=== PATIENT | male | born 1960 | race Caucasian/White ===

== ENCOUNTER 2019-09-04 20:01 | Observation (INO) | payer OTHER, SELFPAY ==
--- NOTE | ~2019-09-04 | CT_ITS ---
EXAMINATION: CT chest abdomen pelvis wo con DATE: 09/05/2019 13:49 INDICATION: Hemoptysis. Abdominal pain. Pulsatile epigastric abdominal mass. TECHNIQUE: Computed tomography (CT) of the chest, abdomen, and pelvis was performed without intraveno us contrast. Automated exposure control and iterative reconstruction technique were employed. The dos e-length product was 406.58 mGy-cm. COMPARISON: CT chest, abdomen, and pelvis 07/19/2016 FINDINGS: CHEST CT: The lungs demonstrate mild atelectasis. A calcified right lung nodule is consistent with old granulom atous disease. No pleural effusion. The heart size is normal. There are coronary artery calcification s. There are changes of aortic valve replacement. The central pulmonary arteries are enlarged, consis tent with pulmonary arterial hypertension. There is a left chest wall pacer with leads in the right a trium and right ventricle. There is ectasia of ascending aorta measuring 4.0 cm. Aortic arch is enrique l in caliber. Distal descending thoracic aorta measures 4.5 cm. There is mild thoracic spondylosis. ABDOMEN/PELVIS CT: The liver, gallbladder, spleen, pancreas, and adrenal glands are normal. Calcifications at the hilum of the kidneys are likely vascular. There are no dilated loops of bowel. The appendix is normal. Ther e are no pathologically enlarged lymph nodes. There is no free intraperitoneal fluid. There is a fusi form suprarenal and infrarenal aortic aneurysm measuring 4.7 cm. There is mild lumbar spondylosis. IMPRESSION: 1. 4.7 cm fusiform abdominal aortic aneurysm, increased from 4.3 cm on 07/19/2016. Reviewed, dictated and finalized at location A. RS IMPRESSION: 1. 4.7 cm fusiform abdominal aortic aneurysm, increased from 4.3 cm on 07/19/20 16.
--- NOTE | ~2019-09-04 | XR_ITS ---
EXAMINATION: XR chest 2V DATE: 09/04/2019 20:29 INDICATION: COPD. Cardiac valve replacement. Mid chest pain. Epigastric pain. TECHNIQUE: PA and lateral views of the chest were obtained. COMPARISON: Chest radiograph dated 11/05/2018 FINDINGS: Unchanged mild hyperexpansion of lungs consistent with given history of COPD. No focal airspace opaci ties, pulmonary edema, pleural effusion or pneumothorax. The cardiomediastinal silhouette is normal. Median sternotomy wires, ostial markers and mediastinal surgical clips consistent with prior coronary artery bypass grafting. There are also changes of prior cardiac valve repairs, likely aortic and katalina ral. Dual lead pacemaker seen with leads projecting over the expected locations of the right atrium a nd right ventricle. IMPRESSION: 1. Mild hyperexpansion of the clear lungs consistent with given history of COPD. Reviewed, dictated and finalized at location A. USIES INSTALLER IMPRESSION: 1. Mild hyperexpansion of the clear lungs consistent with given history of COPD .
[2019-09-04 19:58] VITALS: BP 153/101; RESP 14; TEMP 36.4; O2SAT 95
--- NOTE | 2019-09-04 20:04 | ECG_ITS ---
Measurements Intervals [place] Rate: 69 P: 176 KS: 187 QRS: 72 QRSD: 110 T: 82 QT: 391 QTc: 421 Interpretive Statements ELECTRONIC ATRIAL PACEMAKER INCOMPLETE LEFT BUNDLE BRANCH BLOCK LEFT VENTRICULAR HYPERTROPHY AND ST-T CHANGE BORDERLINE T WAVE ABNORMALITY- LATERAL LEADS ABNORMAL ECG Electronically Signed On 09-04-2019 20:19:03 PIANO REFINISHER by Kush Cash D.O.
[2019-09-04 20:05] VITALS: PULSE 63
--- NOTE | 2019-09-04 20:19 | ED.CHESTPAIN ---
HPI - Chest Pain General Chief Complaint: Chest Pain Stated Complaint: chest pain Time Seen by Provider: 09/04/19 20:07 Source: patient and RN notes reviewed Mode of arrival: EMS Limitations: no limitations History of Present Illness HPI narrative: Pt is a 59 y/o male with a Hx of CABG, pacemaker, and cardiac valve replacement, who presents to the ED via EMS with c/o substernal chest pain starting around 4 AM this morning. He notes that he felt nauseas this morning when his pain first began. Pt states that he was unable to work much throughout the day today due to his pain. He notes that his pain aggravated shortly after returning home from work. Pt states that nothing in particular seemed to aggravate his pain. He notes that he was unable to eat much today due to his nausea. Pt also reports palpitations accompanying his pain, stating that his heart felt like it was racing. He notes that his pain resolved after vomiting and receiving NTG and ASA while in route to the ED. Pt states that he currently takes ASA. MD complaint: chest pain Pertinent past history: CABG and other (cardiac valve replacement; pacemaker) Onset (ago): hour(s) (16) Timing of current episode: now resolved Onset: during rest Pain location: substernal Relieving factors: nitroglycerin and medication-other (ASA) Associated symptoms: nausea, vomiting, palpitations and other (decreased intake) Treatment prior to arrival: aspirin and nitroglycerin Related Data Home Medications Medication Instructions Recorded Confirmed gabapentin 100 mg PO BID 09/04/19 09/04/19 Allergies Allergy/AdvReac Type Severity Reaction Status Date / Time Contrast Media Allergy Severe Anaphylactic Uncoded 09/04/19 20:06 Shock Review of Systems Review of Systems: All systems reviewed & are unremarkable except as noted in HPI and below Constitutional: Constitutional: Reports other (decreased intake) Cardiovascular: Cardiovascular: Reports chest pain (substernal chest pain) and Reports palpitations Gastrointestinal: Gastrointestinal: Reports nausea and Reports vomiting PMF Past Medical History Medical History (Updated 09/05/19 @ 03:00 by Johnny Yeung MD) A-fib Back pain CAD (coronary artery disease) CHF (congestive heart failure) HLD (hyperlipidemia) HTN (hypertension) Hx of cardiac pacemaker Pacemaker Surgical History Surgical History (Updated 09/05/19 @ 02:11 by Albert Duncan MD) Hx of aortic valve replacement Hx of CABG Hx of mitral valve replacement Family History Family History (Updated 09/05/19 @ 02:12 by Albert Duncan MD) Mother Acute myocardial infarction, Onset Age: 33 Sibling Cerebrovascular accident Social History Social History (Updated 09/05/19 @ 02:12 by Albert Duncan MD) Smoking status: Current every day smoker Tobacco type: cigarettes Additional smoking assessment comments: 15 cig/daily Alcohol intake: never Substance use: never Substance use type: marijuana Gender identity (if verbalized by the patient): Male Spiritual care concerns: No Agree to blood products: No Exam Const: General: healthy appearing and no acute distress Nutritional Appearance: well nourished Resp: Effort & Inspection: normal respiratory effort Auscultation: clear to auscultation bilaterally Cardio: Rate: regular rate Rhythm: regular rhythm Heart sounds: no murmurs GI: Inspection: normal to inspection GI Palp: No abdominal tenderness and Yes Soft to palpation Auscultation: normal bowel sounds Back/Spine/Pelvis: Back: other (Full ROM) Skin: General skin exam: normal color, dry skin and other (warm) Neuro: General: patient oriented x3 (alert) Speech: normal speech Extrem: General: full ROM Psych: Mental Status: mental status grossly normal Affect: normal affect Course Consultations Consultation #1: Discussed case with hospitalist, Dr. Duncan. Accepted admission. Date: 09/05/19 Time: 01:30 Vital Sig
[2019-09-04 21:04] VITALS: BP 148/84; PULSE 67; RESP 17; O2SAT 96
[2019-09-04 21:11] LABS: Basophils Percent Auto 0.3 % (0.2-1.2); Eosinophils Absolute Auto 0.1 K/mm3 (0-0.3); Eosinophils Percent Auto 0.5 % (0-4.4); Hematocrit 42.7 % (42.0-52.0); Hemoglobin 13.9 g/dL (14.0-18.0); Immature Granulocyte Absolute 0.03 K/mm3 (0.00-0.031); Immature Granulocyte Percent A 0.3 % (0-0.5); Lymphocytes Absolute Auto 2.19 K/mm3 (0.9-3.2); Lymphocytes Percent Auto 23.4 % (18.3-44.2); Mean Corpuscular HGB Conc 32.6 g/dl (32-36); Mean Corpuscular Hemoglobin 29.4 pg (26-34); Mean Corpuscular Volume 90.5 fl (80-100); Mean Platelet Volume 10.4 fl (7.4-10.4); Monocytes Absolute Auto 0.7 K/mm3 (0.1-0.6); Monocytes Percent Auto 7.7 % (2.6-8.5); Neutrophils Absolute Auto 6.3 K/mm3 (1.3-6.7); Neutrophils Percent Auto 67.8 % (45.5-73.1); Platelet Count Result 159 k/mm3 (150-375); Red Blood Count 4.72 M/mm3 (4.6-6.20); Red Cell Distribution Width 15.8 % (11.5-14.5); White Blood Count 9.4 K/mm3 (4.5-10.0)
[2019-09-04 21:21] LABS: Prothrombin Time 13.1 Seconds (11.1-14.7)
[2019-09-04 21:23] LABS: Blood Urea Nitrogen 24 mg/dL (9-20); Calcium 9.5 mg/dL (8.4-10.2); Carbon Dioxide 27 mmol/L (22-30); Chloride 102 mmol/L (98-107); Estimated Glomerular Filt Rate > 60; Glucose 106 mg/dL (75-110); Potassium 4.1 mmol/L (3.4-5.0); Sodium 138 mmol/L (137-145)
[2019-09-04 21:35] LABS: Troponin I 0.023 ng/mL (0.000-0.034)
[2019-09-04] MEDS: ONDANSETRON INJ 4 MG/2 ML VIAL IV PUSH (21:41)
[2019-09-04 22:59] VITALS: BP 137/83; PULSE 117; RESP 18; O2SAT 97
--- NOTE | 2019-09-04 23:07 | PC.NURSE ---
basting cleanerKANDACE Muñoz noticed pt's HR 170. charge went in to check on pt. pt woke up and hr returned to 118. EDP notified.
--- NOTE | 2019-09-04 23:40 | ECG_ITS ---
Measurements Intervals [place] Rate: 64 P: 43 ME: 156 QRS: 65 QRSD: 111 T: 90 QT: 428 QTc: 443 Interpretive Statements SINUS RHYTHM POSSIBLE LEFT ATRIAL ENLARGEMENT INCOMPLETE LEFT BUNDLE BRANCH BLOCK CANNOT RULE OUT SEPTAL INFARCT, AGE INDETERMINATE BORDERLINE ST-T WAVE ABNORMALITY- LATERAL LEADS ABNORMAL ECG Electronically Signed On 09-05-2019 7:05:56 CATERING SERVER by Kush Cash D.O.
[2019-09-05] VITALS (17 sets, daily range): BP systolic 103–183; BP diastolic 76–97; PULSE 60–97; RESP 15–20; TEMP 36.7–37.4; O2SAT 96–100; BMI 21.4
--- NOTE | 2019-09-05 | ECHO_ITS ---
Patient Info Name: Ricci Russell Age: 59 years : 1960 Gender: Male Ht: 70 in Wt: 149 lbs BSA: 1.82 m2 HR: 75 bpm Heart Rhythm: Sinus Rhythm Technical Quality: Good Exam Date: 09/05/2019 12:08 PM Exam Location: [facility] Pulmonary Patient Status: Inpatient Admit Date: 09/05/2019 Staff Ordering Physician: Quinton Miller MD Linen Supply Load Builder: Michael Lynn, SCOOTER, RT Attending Provider: Albert Duncan MD Exam Type: CA echo doppler color flow Study Info Indications I50.9 - Heart failure, unspecified Complete two-dimensional, color flow and Doppler transthoracic echocardiogram is performed. Summary 1. Left ventricular chamber dimension is normal. 2. Left ventricular systolic function is hyperdynamic, estimated at >70%. 3. There is severely increased left ventricular wall thickness. 4. The left ventricular diastolic function is grade I diastolic dysfunction. 5. Elevated velocities through the LVOT are noted and likely related to the hyperdynamic LV function. 6. Left atrial chamber dimension is mildly enlarged. 7. The bioprosthetic aortic valve is not well visualized. 8. There is trace regurgitation of the bioprosthetic aortic valve. 9. Peak and mean gradients of 24 and 13 mmHg respectively. 10. There is mild to moderate stenosis of the annuloplasty ring prosthetic mitral valve. 11. There is mild regurgitation of the annuloplasty ring prosthetic mitral valve. 12. Mean gradient of 7 mmHg with calculated mitral valve area of 1.3 centimeter squared. 13. Moderate pulmonary hypertension, estimated pulmonary arterial systolic pressure is 47 mmHg. 14. There is mild tricuspid valve regurgitation. 15. The abdominal aorta size is mildly dilated. Left Ventricle Left ventricular chamber dimension is normal. Left ventricular systolic function is hyperdynamic, estimated at >70%. There is severely increased left ventricular wall thickness. The left ventricular diastolic function is grade I diastolic dysfunction. Elevated velocities through the LVOT are noted and likely related to the hyperdynamic LV function. Right Ventricle Right ventricular chamber dimension is normal. Right ventricular systolic function is normal. RV pacer noted. Left Atria Left atrial chamber dimension is mildly enlarged. Right Atria Right atrial chamber dimension is normal. Atrial Septum Intact interatrial septum visualized by color flow imaging. Aortic Valve The bioprosthetic aortic valve is not well visualized. There is trace regurgitation of the bioprosthetic aortic valve. Peak and mean gradients of 24 and 13 mmHg respectively. Pulmonic Valve The pulmonic valve is normal. There is no pulmonic valve stenosis. There is trace pulmonic regurgitation. Mitral Valve There is mild to moderate stenosis of the annuloplasty ring prosthetic mitral valve. There is mild regurgitation of the annuloplasty ring prosthetic mitral valve. Mean gradient of 7 mmHg with calculated mitral valve area of 1.3 centimeter squared. Tricuspid Valve Moderate pulmonary hypertension, estimated pulmonary arterial systolic pressure is 47 mmHg. The tricuspid valve leaflets are normal. There is no significant tricuspid valve stenosis. There is mild tricuspid valve regurgitation. Pericardium/Pleural The pericardium appears normal. There is trivial pericardial effusion. Inferior Vena Cava Dilated inferior vena cava with <50% collapse upon inspiration consistent with elevated right atrial pressure, 15 mmHg. Aorta
[2019-09-05 00:04] LABS: Troponin I 0.032 ng/mL (0.000-0.034)
[2019-09-05] MEDS: METOCLOPRAMIDE HCL INJ 10 MG/2 ML VIAL IV PUSH (00:50)
[2019-09-05] MEDS: NITROGLYCERIN SL 0.4 MG TABLET SUBLINGUAL ×3 (00:50→08:36)
--- NOTE | 2019-09-05 00:52 | PC.NURSE ---
0050 0.4 mg nitro sublingual administered 161/110 cp at 5 0055 0.4 nitro sublingual administered 172/97 cp at 6 0100 0.4 nitro sl administered 157/100 cp at 4 0105 pt cp at 0 a
--- NOTE | 2019-09-05 02:05 | PM.IMHP ---
H&P: HPI History of Present Illness Chief complaint: chest pain Narrative: This is a 59 year old male with known CAD+ s/p mitral and aortic valve replacement as well as single vessel CABG 5 years ago presented to the hospital with a complaint of midsternal chest pain that has been ongoing since yesterday morning. He woke up yesterday morning around 4 am with midsternal chest pain that didn't radiate anywhere. Associated symptoms included nausea but no vomiting. He went to work and decided to just stay in his truck and rest as he continued to have chest pain. His chest pain lasted all day long and he finally decided to come to the hospital for evaluation. He believes that the reason he has been very nauseated is because he just started taking allopurinol 2 days ago. Yesterday he tried to eat some food but became very nauseated. The patients chest pain resolved in the ER with a GI cocktail. He denies any fevers, chills, cough, abdominal pain, dysuria, hematuria, vomiting, diarrhea, LE edema, or rectal bleeding. The patient hasn't had a recent stress test or cardiac angiogram. Initial and second troponin have been negative. The patient's mother is known to have at age 33 of myocardial infarction. Actually the patient no longer has any chest pain. ER provider was considering to send the patient home but his second troponin came back slightly more elevated and decided to admit him for chest pain rule out. Review of Systems Review of Systems: All systems reviewed & are unremarkable except as noted in HPI and below PMFSH Past Medical History Medical History (Updated 09/05/19 @ 02:25 by Albert Duncan MD) A-fib Back pain CAD (coronary artery disease) CHF (congestive heart failure) HLD (hyperlipidemia) HTN (hypertension) Hx of cardiac pacemaker Pacemaker Surgical History Surgical History (Updated 09/05/19 @ 02:11 by Albert Duncan MD) Hx of aortic valve replacement Hx of CABG Hx of mitral valve replacement Family History Family History (Updated 09/05/19 @ 02:12 by Albert Duncan MD) Mother Acute myocardial infarction, Onset Age: 33 Sibling Cerebrovascular accident Social History Social History (Updated 09/05/19 @ 02:12 by Albert Duncan MD) Smoking status: Current every day smoker Tobacco type: cigarettes Additional smoking assessment comments: 15 cig/daily Alcohol intake: never Substance use: never Meds Home Medications and Allergies Home Medications Medication Instructions Recorded Confirmed Type gabapentin 100 mg PO BID 09/04/19 09/04/19 History Allergies Allergy/AdvReac Type Severity Reaction Status Date / Time Contrast Media Allergy Severe Anaphylactic Uncoded 09/04/19 20:06 Shock Vital Signs Vital Signs - 24 hr 09/04/19 19:58 09/04/19 20:05 09/04/19 21:04 Temperature 36.4 C Pulse Rate 63 67 Respiratory Rate 14 17 Blood Pressure 153/101 H 148/84 H Pulse Oximetry 95 96 09/04/19 22:59 09/05/19 00:52 Temperature Pulse Rate 117 H 63 Respiratory Rate 18 16 Blood Pressure 137/83 161/91 H Pulse Oximetry 97 96 Exam Const: General: cooperative, no acute distress, alert, awake, poor hygiene and other (disheveled++ ) Nutritional Appearance: thin Orientation/consciousness: patient oriented x3 HENMT: Head: normal to inspection General nose exam: Normal external nose present Face and sinus: normal facial exam Mouth: Yes Normal oral and palatal mucosa present Eyes: Pupils: Equal, round and reactive pupils present EOM: EOMs intact bilaterally Neck: Neck: supple and no JVD Thyroid: thyroid normal Lymphatic: lymphadenopathy not noted Resp: Effort & Inspection: normal respiratory effort Auscultation: clear to auscultation bilaterally Cardio: Rate: regular rate Rhythm: regular rhythm Heart sounds: no murmurs GI: Inspection: normal to inspection Auscultation: normal bowel sounds Other: multiple diffuse subcutaneous lipomas++
--- NOTE | 2019-09-05 02:19 | ECG_ITS ---
Measurements Intervals [place] Rate: 65 P: 68 WI: 167 QRS: 71 QRSD: 114 T: 83 QT: 433 QTc: 453 Interpretive Statements SINUS RHYTHM POSSIBLE LEFT ATRIAL ENLARGEMENT INCOMPLETE LEFT BUNDLE BRANCH BLOCK CANNOT RULE OUT SEPTAL INFARCT, AGE INDETERMINATE NONSPECIFIC T-WAVE ABNORMALITY- LATERAL LEADS ABNORMAL ECG Electronically Signed On 09-05-2019 7:07:30 WATER FILTERER HELPER by Kush Cash D.O.
--- NOTE | 2019-09-05 02:31 | PC.NURSE ---
will not allow RN to type discharge plan. Pt left ed at 0220
[2019-09-05 02:47] LABS: Cholesterol 206 mg/dL (0-200); HDL Direct 39 mg/dL; Triglycerides 116 mg/dL (<150)
[2019-09-05 02:53] LABS: Alanine Aminotransferase 23 U/L (4-50); Alkaline Phosphatase 75 U/L (38-126); Aspartate Amino Transferase 35 U/L (17-59); Lipase 33 U/L (23-300)
[2019-09-05] MEDS: ONDANSETRON INJ 4 MG/2 ML VIAL IV PUSH ×2 (02:54→07:51)
[2019-09-05 02:57] LABS: LDL Cholesterol Direct 130 mg/dL
--- NOTE | 2019-09-05 02:59 | ADMGEN ---
This patient, Ricci Russell, was admitted to IMU Room 205-02. Patient/family oriented to hospital policies and general routines including ID bracelet, bed and alarms, visiting hours, pain management, procedures, bathroom and other care routines, personal items, smoking policy, room service/diet, and visiting hours. Valuables list has been completed. Information on how to activate the Rapid Response Team has been discussed. Patient/Family are encouraged to report perceived risks to care and to ask questions if they do not understand what they are told or what they should do.
[2019-09-05] MEDS: METOPROLOL TARTRATE 50 MG TAB PO (03:13)
[2019-09-05 03:17] LABS: Troponin I 0.041 ng/mL (0.000-0.034)
--- NOTE | 2019-09-05 03:33 | PC.NURSE ---
pt reports having phone on him upon arrival to ed. pt reports not having phone on him when he arrived to . per KANDACE Wilburn. pt mentioned to RN that he needed to make a few phone calls earlier in the night. This RN referred pt to [employer]. pt also never mentioned having a cell phone with him when this rn went over pt's belongings list, pt never reported having a cell phone.
[2019-09-05 07:19] LABS: Amphetamine Screen Urine Negative (Negative); Barbiturate Screen Urine Negative (Negative); Benzodiazepines Screen Urine Negative (Negative); Cannabinoid Screen Urine Positive (Negative); Cocaine Screen Urine Negative (Negative); Methadone Screen Urine Negative (Negative); Opiate Screen Urine Positive (Negative); Phencyclidine Screen Urine Negative (Negative)
--- NOTE | 2019-09-05 08:25 | ECG_ITS ---
Measurements Intervals [place] Rate: 65 P: 28 [place]: 151 QRS: 71 QRSD: 109 T: 86 QT: 429 QTc: 448 Interpretive Statements SINUS RHYTHM POSSIBLE LEFT ATRIAL ENLARGEMENT INTRAVENTRICULAR CONDUCTION DELAY DELAYED PRECORDIAL R/S TRANSITION BORDERLINE T WAVE ABNORMALITY- INFERIOR LEADS BORDERLINE ECG Electronically Signed On 09-05-2019 8:47:04 BREAD DOUGH MIXER by Kush Cash D.O.
--- NOTE | 2019-09-05 08:31 | PM.CNCAR ---
Assessment and Plan Assessment and plan (1) Abdominal pain: Qualifiers: Abdominal location: epigastric Qualified Code(s): R10.13 - Epigastric pain Code(s): R10.9 - Unspecified abdominal pain Status: Acute Assessment and Plan: 59-year-old male with history of single-vessel CAD with GLASS BULB SILVERER of mid RCA, valvular heart disease (severe AI, MR) status post CABG x1 with SVG to PDA, status post bioprosthetic AVR with placement of number 23 magna pericardial valve, status post mitral valve repair (on 06/25/2014 at [facility]), history of symptomatic tachy-casa syndrome status post placement of dual-chamber Medtronic pacemaker placement on 07/05/2014. Patient admitted with complaints of epigastric and lower substernal chest discomfort after he was initiated on NSAIDs and allopurinol for gout. In addition, patient reportedly has history of AAA. Patient is undergoing GI evaluation, and also CT scan of the abdomen to re-evaluate AAA. PPI for possible NSAID induced gastritis (2) Chest pain: Qualifiers: Chest pain type: unspecified Qualified Code(s): R07.9 - Chest pain, unspecified Code(s): R07.9 - Chest pain, unspecified Status: Acute Assessment and Plan: No acute ST segment abnormalities on the EKG. Continue to monitor. Echocardiogram will be performed to assess LV function and wall motion. (3) CAD (coronary artery disease): Qualifiers: Associated angina: with unspecified angina Coronary Disease-Associated Artery/Lesion type: bypass graft [place] vs. transplanted heart: [place] heart Qualified Code(s): I25.709 - Atherosclerosis of coronary artery bypass graft(s), unspecified, with unspecified angina pectoris Code(s): I25.10 - Atherosclerotic heart disease of [place] coronary artery without angina pectoris Status: Chronic Assessment and Plan: Aspirin, statin Use PPI with aspirin (4) VHD (valvular heart disease): Code(s): I38 - Endocarditis, valve unspecified Status: Acute Assessment and Plan: Check echocardiogram to reassess bioprosthetic aortic valve, and mitral valve. (5) AAA (abdominal aortic aneurysm) without rupture: Code(s): I71.4 - Abdominal aortic aneurysm, without rupture Status: Acute Assessment and Plan: CT scan of the abdomen is pending (6) Tobacco use: Code(s): Z72.0 - Tobacco use Status: Acute Assessment and Plan: Smoking cessation counseling was done History of Present Illness History of Present Illness Consult date/time: 09/05/19 08:31 Date of consult 11/20/2019 Reason for consult: Chest pain Requesting physician:Dr mcneill Chief complaint: Chest pain HPI: 59-year-old male with history of single-vessel CAD with GLASS BULB SILVERER of mid RCA, valvular heart disease (severe AI, MR) status post CABG x1 with SVG to PDA, status post bioprosthetic AVR with placement of number 23 magna pericardial valve, status post mitral valve repair (on 06/25/2014 at [facility]), history of symptomatic tachy-casa syndrome status post placement of dual-chamber Medtronic pacemaker placement on 07/05/2014. Patient was originally diagnosed with congestive heart failure with underlying valvar disease and CAD in 2013, and underwent CABG x1 and bio AVR and mitral valve repair on 06/25/2014. Prior to CABG and valve surgery, patient had cardiac catheterization at [facility] on 06/22/2014 which showed GLASS BULB SILVERER mid RCA; no significant obstructive disease in the left coronary system. He used to follow up with Dr. Estrada and his last office visit was on 11/11/2016. He has not had regular follow-up visit since then. He presents to [facility] with complaints of substernal and epigastric chest discomfort that started yesterday morning. He describes the chest pain as dull aching sensation, localized and associated with nausea without vomiting. Patient also has been experiencing constipation for last 5 days
[2019-09-05] MEDS: PANTOPRAZOLE SODIUM IV 40 MG VIAL IV PUSH (08:36)
[2019-09-05] MEDS: ASPIRIN 81 MG CHEWABLE TABLET PO (08:36)
--- NOTE | 2019-09-05 08:56 | P.PNIM_ITS ---
Progress Note: A&P Assessment and Plan (1) Chest pain: Qualifiers: Chest pain type: unspecified Qualified Code(s): R07.9 - Chest pain, unspecified Code(s): R07.9 - Chest pain, unspecified Status: Acute Assessment and Plan: * Suspect related to his nausea and abdominal discomfort * Follow-up troponin I pending * EKG without significant change (2) Abdominal pain: Qualifiers: Abdominal location: epigastric Qualified Code(s): R10.13 - Epigastric pain Code(s): R10.9 - Unspecified abdominal pain Status: Acute Assessment and Plan: * Suspect medication induced * Cholecystitis or pancreatitis likely * Gastritis or peptic ulcer disease possible * Expanding abdominal aortic aneurysm possible * CT abdomen pelvis (3) Nausea: Code(s): R11.0 - Nausea Status: Acute Assessment and Plan: * As above * Antiemetics for symptom control (4) HTN (hypertension): Qualifiers: Hypertension type: unspecified Qualified Code(s): I10 - Essential (primary) hypertension Code(s): I10 - Essential (primary) hypertension Status: Chronic Assessment and Plan: * Continue home regimen * Monitor pressure (5) CAD (coronary artery disease): Qualifiers: Coronary Disease-Associated Artery/Lesion type: bypass graft [place] vs. transplanted heart: [place] heart Associated angina: with unspecified angina Qualified Code(s): I25.709 - Atherosclerosis of coronary artery bypass graft(s), unspecified, with unspecified angina pectoris Code(s): I25.10 - Atherosclerotic heart disease of [place] coronary artery without angina pectoris Status: Chronic Assessment and Plan: * No evidence for acute coronary syndrome (6) Acute gout: Qualifiers: Gout site: foot Gout etiology: idiopathic Laterality: right Qualified Code(s): M10.071 - Idiopathic gout, right ankle and foot Code(s): M10.9 - Gout, unspecified Status: Acute Assessment and Plan: * IV Solu-Medrol (7) Hemoptysis: Code(s): R04.2 - Hemoptysis Status: Acute Assessment and Plan: * Smoker at high risk for lung neoplasm * Pulmonary embolus clinically unlikely * Chest x-ray without acute process * CT chest (8) Tobacco use: Code(s): Z72.0 - Tobacco use Status: Acute Assessment and Plan: * Encouraged smoking cessation (9) AAA (abdominal aortic aneurysm) without rupture: Code(s): I71.4 - Abdominal aortic aneurysm, without rupture Status: Acute Subjective Date/time seen: 09/05/19 08:56 Interval history: Severe nausea. No BM for 5 days. No full solid food for 3 days. Pain is epigastric to lower substernal. Aching. No heartburn. No emesis. Recent weight loss. About 2 weeks ago he had hemoptysis. No other abnormal bleeding. Started gout medication about week or so ago. Does not know was. Seem to get nauseated shortly after starting. Gout in the right foot including PICC toe little toe and heel. Does have a history of abdominal aortic aneurysm. Last ultrasound in [place] 2 months ago. Was told was not surgical size yet. Review of Systems Review of Systems: All systems reviewed & are unremarkable except as noted in HPI and below Exam Narrative: Exam Narrative: HEENT: EOMI, PERRL, pharyngeal mucosa pink and intact NECK: No JVD CHEST: Clear to auscultation. Normal effort. HEART: NL S1/S2, regular, no murmur ABDOME
--- NOTE | 2019-09-05 08:56 | PM.IMPN ---
Progress Note: A&P Assessment and Plan (1) Chest pain: Qualifiers: Chest pain type: unspecified Qualified Code(s): R07.9 - Chest pain, unspecified Code(s): R07.9 - Chest pain, unspecified Status: Acute Assessment and Plan: Suspect related to his nausea and abdominal discomfort Follow-up troponin I pending EKG without significant change (2) Abdominal pain: Qualifiers: Abdominal location: epigastric Qualified Code(s): R10.13 - Epigastric pain Code(s): R10.9 - Unspecified abdominal pain Status: Acute Assessment and Plan: Suspect medication induced Cholecystitis or pancreatitis likely Gastritis or peptic ulcer disease possible Expanding abdominal aortic aneurysm possible CT abdomen pelvis (3) Nausea: Code(s): R11.0 - Nausea Status: Acute Assessment and Plan: As above Antiemetics for symptom control (4) HTN (hypertension): Qualifiers: Hypertension type: unspecified Qualified Code(s): I10 - Essential (primary) hypertension Code(s): I10 - Essential (primary) hypertension Status: Chronic Assessment and Plan: Continue home regimen Monitor pressure (5) CAD (coronary artery disease): Qualifiers: Coronary Disease-Associated Artery/Lesion type: bypass graft [place] vs. transplanted heart: [place] heart Associated angina: with unspecified angina Qualified Code(s): I25.709 - Atherosclerosis of coronary artery bypass graft(s), unspecified, with unspecified angina pectoris Code(s): I25.10 - Atherosclerotic heart disease of [place] coronary artery without angina pectoris Status: Chronic Assessment and Plan: No evidence for acute coronary syndrome (6) Acute gout: Qualifiers: Gout site: foot Gout etiology: idiopathic Laterality: right Qualified Code(s): M10.071 - Idiopathic gout, right ankle and foot Code(s): M10.9 - Gout, unspecified Status: Acute Assessment and Plan: IV Solu-Medrol (7) Hemoptysis: Code(s): R04.2 - Hemoptysis Status: Acute Assessment and Plan: Smoker at high risk for lung neoplasm Pulmonary embolus clinically unlikely Chest x-ray without acute process CT chest (8) Tobacco use: Code(s): Z72.0 - Tobacco use Status: Acute Assessment and Plan: Encouraged smoking cessation (9) AAA (abdominal aortic aneurysm) without rupture: Code(s): I71.4 - Abdominal aortic aneurysm, without rupture Status: Acute Subjective Date/time seen: 09/05/19 08:56 Interval history: Severe nausea. No BM for 5 days. No full solid food for 3 days. Pain is epigastric to lower substernal. Aching. No heartburn. No emesis. Recent weight loss. About 2 weeks ago he had hemoptysis. No other abnormal bleeding. Started gout medication about week or so ago. Does not know was. Seem to get nauseated shortly after starting. Gout in the right foot including PICC toe little toe and heel. Does have a history of abdominal aortic aneurysm. Last ultrasound in [place] 2 months ago. Was told was not surgical size yet. Review of Systems Review of Systems: All systems reviewed & are unremarkable except as noted in HPI and below Exam Narrative: Exam Narrative: HEENT: EOMI, PERRL, pharyngeal mucosa pink and intact NECK: No JVD CHEST: Clear to auscultation. Normal effort. HEART: NL S1/S2, regular, no murmur ABDOMEN: BS+, soft, tender pulsatile mass in the epigastrium and periumbilical region. Right upper quadrant tenderness. No audible bruit. EXTREMITIES: No cyanosis, edema, or clubbing NEUROLOGIC: CN intact and symmetric to inspection. MUSCULOSKELETAL: Tone and strength symmetric. Tender to palpation over the right 1st and 5th toes and right heel. PSYCH: Alert. Oriented to person, place, and time. Objective Data Vital Signs Vital Signs: Vital Signs - 24 hr 09/04/19 19:58
[2019-09-05 09:53] LABS: Troponin I 0.054 ng/mL (0.000-0.034)
[2019-09-05] MEDS: PROCHLORPERAZINE EDISYLATE 10 MG/2 ML VIAL IV PUSH (10:15)
[2019-09-05] MEDS: METOPROLOL TARTRATE 50 MG TAB 100 MG PO ×2 (10:26→21:45)
[2019-09-05] MEDS: GABAPENTIN 100 MG CAPSULE PO ×2 (10:27→21:44)
[2019-09-05] MEDS: buPROPion HCL 75 MG TABLET PO (10:27)
[2019-09-05] MEDS: methylPREDNISolone SOD SUCC 125 MG VIAL 60 MG IV PUSH (10:27)
[2019-09-05] MEDS: ATORVASTATIN 40 MG TABLET PO (10:27)
[2019-09-05 15:03] LABS: Troponin I 0.055 ng/mL (0.000-0.034)
[2019-09-06] VITALS (7 sets, daily range): BP systolic 88–138; BP diastolic 60–85; PULSE 61–81; RESP 20; TEMP 36.7–36.9; O2SAT 96–99
[2019-09-06 04:47] LABS: Basophils Percent Auto 0.1 % (0.2-1.2); Eosinophils Percent Auto 0.1 % (0-4.4); Hematocrit 41.8 % (42.0-52.0); Hemoglobin 13.8 g/dL (14.0-18.0); Immature Granulocyte Percent A 0.7 % (0-0.5); Lymphocytes Absolute Auto 3.38 K/mm3 (0.9-3.2); Lymphocytes Percent Auto 24.2 % (18.3-44.2); Mean Corpuscular Hemoglobin 29.7 pg (26-34); Mean Corpuscular Volume 89.9 fl (80-100); Mean Platelet Volume 10.7 fl (7.4-10.4); Monocytes Absolute Auto 1.4 K/mm3 (0.1-0.6); Monocytes Percent Auto 9.9 % (2.6-8.5); Neutrophils Absolute Auto 9.1 K/mm3 (1.3-6.7); Platelet Count Result 171 k/mm3 (150-375); Red Blood Count 4.65 M/mm3 (4.6-6.20); Red Cell Distribution Width 15.9 % (11.5-14.5)
[2019-09-06 05:18] LABS: Blood Urea Nitrogen 41 mg/dL (9-20); Calcium 9.5 mg/dL (8.4-10.2); Carbon Dioxide 25 mmol/L (22-30); Chloride 98 mmol/L (98-107); Estimated CRCL calculation 58 ml/min; Estimated Glomerular Filt Rate 57; Glucose 100 mg/dL (75-110); Potassium 4.4 mmol/L (3.4-5.0); Sodium 137 mmol/L (137-145)
--- NOTE | 2019-09-06 08:02 | PM.DS ---
DS: Diagnosis Admitting Diagnosis Admitting Diagnosis: Chest pain, unspecified DS: Summary Hospital Course Reason for hospitalization: Chest pain Hospital Course: Patient was admitted with upper abdominal to lower chest discomfort. Found to have pulse Lamin on exam. CT of the abdomen pelvis revealed that his abdominal aortic aneurysm had expanded a bit. But there is no sign of dissection or bleeding or rupture. EKG showed nonspecific T-wave changes. Troponins were relatively flat. Chest pain resolved. Echocardiogram showed LVH with hyperdynamic left ventricle. Moderate pulmonary hypertension. 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 No wall motion abnormalities were noted. Due to personal issues the patient signed out early in the morning of September 06. He signed out against medical advice. Time Spent with Patient Time attestation: Total time spent providing and/or coordinating discharge services: 25 min Exam Narrative: Exam Narrative: He was alert oriented to person place and time. He was ambulating independently. DS: Data Data Completed and Pending Labs on day of discharge: Labs from last 24 hours 09/06/19 09/06/19 09/05/19 04:05 04:05 14:27 WBC 14.0 H RBC 4.65 Hgb 13.8 L Hct 41.8 L MCV 89.9 MCH 29.7 MCHC 33.0 RDW 15.9 H Plt Count 171 MPV 10.7 H Immature Gran % (Auto) 0.7 H Neut % (Auto) 65.0 Lymph % (Auto) 24.2 Tyler % (Auto) 9.9 H Eos % (Auto) 0.1 Baso % (Auto) 0.1 L Lymph # (Auto) 3.38 H Tyler # (Auto) 1.4 H Eos # (Auto) 0.0 Baso # (Auto) 0.0 Abs Immat Gran (auto) 0.10 H Absolute Neuts (auto) 9.1 H Absolute Nucleated RBC 0.0 Nucleated RBC % 0.0 Sodium 137 Potassium 4.4 Chloride 98 Carbon Dioxide 25 BUN 41 H D Creatinine 1.30 Estim Creat Clear Calc 58 Estimated GFR 57 L Glucose 100 Calcium 9.5 Troponin I 0.055 H* 09/05/19 09:05 WBC RBC Hgb Hct MCV MCH MCHC RDW Plt Count MPV Immature Gran % (Auto) Neut % (Auto) Lymph % (Auto) Tyler % (Auto) Eos % (Auto) Baso % (Auto) Lymph # (Auto) Tyler # (Auto) Eos # (Auto) Baso # (Auto) Abs Immat Gran (auto) Absolute Neuts (auto) Absolute Nucleated RBC Nucleated RBC % Sodium Potassium Chloride Carbon Dioxide BUN Creatinine Estim Creat Clear Calc Estimated GFR Glucose Calcium Troponin I 0.054 H* D Discharge Plan Discharge Attending physician on discharge: Jamie Mancia Consulting providers: Marty Veronica Discharging Clinician: Jamie Mancia Patient Disposition: Left Against Medical Advice Activity: other - see discharge instructions Diet: other - see discharge instructions Discharge Instructions: Because he signed out against medical advice no prescriptions or instructions on medication activity or follow-up or diet were provided. Patient Instructions: How to Stop Smoking (DC) Discharge Medications: Discontinued gabapentin 100 mg Capsule 100 mg PO BID RF: 0 allopurinol 100 mg tablet 100 mg PO DAILY RF: 0 atorvastatin 40 mg tablet 40 mg PO DAILY RF: 0 metoprolol tartrate 100 mg tablet 100 mg PO BID RF: 0 hydrochlorothiazide 50 mg tablet 50 mg PO DAILY RF: 0 aspirin 81 mg tablet,delayed release (DR/EC) 81 mg PO DAILY RF: 0 bupropion HCl 75 mg tablet 75 mg PO DAILY RF: 0 indomethacin 50 mg capsule 50 mg PO DAILY RF: 0 lisinopril 40 mg tablet 40 mg PO DAILY RF: 0 Date of admission: 09/05/19 01:29 Primary Care Provider: UNKNOWN,DOCTOR Admitting Provider: Albert Duncan Attending physician on admission: Albert Duncan Condition: Stable Quality VTE Prophylaxis VTE prophylaxis: mechanical ordered
== END 2019-09-06 07:49 | disposition left against medical advice (07) ==
LOC: ANHED 09-05 02:30 → ANHIMU 09-05 03:00
PROVIDERS: Emergency Medicine; Admitting Provider Family Medicine; Emergency Provider Emergency Medicine; Visit Provider Internal Medicine
DX: R07.89 Other chest pain (principal); R10.13 Epigastric pain; I71.4 Abdominal aortic aneurysm, without rupture; R04.2 Hemoptysis; I25.709 Atherosclerosis of coronary artery bypass graft(s), unspecified, with unspecified angina pectoris; I11.0 Hypertensive heart disease with heart failure; I50.9 Heart failure, unspecified; I08.0 Rheumatic disorders of both mitral and aortic valves; M10.071 Idiopathic gout, right ankle and foot; F17.210 Nicotine dependence, cigarettes, uncomplicated; Z95.0 Presence of cardiac pacemaker; Z95.1 Presence of aortocoronary bypass graft; Z95.2 Presence of prosthetic heart valve
CPT/HCPCS: 36415; 71046; 71250; 74176; 80048; 80061; 80307; 83690; 84075; 84450; 84460; 84484; 85025; 85610; 85730; 93005; 93306; 96374; 96375; 96376; 99285; A9270; C9113; G0378; G0379; J0780; J2405; J2765; J2930

== ENCOUNTER 2019-10-22 15:55 | IRF | payer OTHER, SELFPAY ==
[2019-10-22 16:00] VITALS: BP 153/95; PULSE 69; RESP 20; TEMP 36.2; O2SAT 97; BMI 25.7
--- NOTE | 2019-10-22 16:00 | ADMGEN ---
Arrived via personal vehicle. This patient, Ricci Russell, was admitted to [facility] Room 225-02. Patient/family oriented to hospital policies and general routines including ID bracelet, bed and alarms, visiting hours, pain management, procedures, bathroom and other care routines, personal items, smoking policy, room service/diet, and visiting hours. Valuables list has been completed. Information on how to activate the Rapid Response Team has been discussed. Patient/Family are encouraged to report perceived risks to care and to ask questions if they do not understand what they are told or what they should do.
--- NOTE | 2019-10-22 17:26 | WPDREHABHP ---
H&P: HPI History of Present Illness Chief complaint: Critical right limb ischemia Narrative: Ricci Russell is a 59 year old male HISTORY OF PRESENT ILLNESS: The patient's primary rehab impairment category is miscellaneous The etiologic diagnosis is critical right lower limb ischemia/status post aortobifemoral bypass/right femoral endarterectomy, and right femoral to above knee popliteal bypass with PT FF on October 11, 2019. I saw this patient [id number] on October 22, 2019 at 5:00 p.m. 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 He was complaining of right foot pain and cellulitis database has been going on for past month. The patient a blocked and nonhealing shallow ulcer to the right great toe. He was a 40 pack per year smoker ( quit 2 days prior to presentation close). In the past 3 years he has experienced a right leg claudication with ambulation and is currently unable to stand without pain. He has been prescribed antibiotics by both his primary care physician and radio electronics officer. Patient was admitted to vascular surgery. There were no signs of active infection. Right lower extremity angiogram revealed critical right lower limb ischemia. He underwent aortobifemoral bypass a right femoral endarterectomy and a right femoral to above knee popliteal bypass with PT FF on October 11, 2019. Postoperatively experienced acute pain uncontrolled hypertension tachycardia constipation and persistent atrial fibrillation with rapid ventricular response and a hoarse cough with congested respirations. Pain Management was consulted as an epidural AGRICULTURAL ENGINEERING TECHNOLOGIST catheter was placed. It was removed on October 16, 2019 at 1:48 p.m.. His pain is now controlled on oral pain medications. His hypertension is being controlled with oral medication but must be monitor an adjustment to medications made accordingly. The patient experience persistent atrial fibrillation with rapid ventricular response and required cardioversion on October 17, 2019 he was transferred to ICU briefly. Cardiology was consulted and the patient is oral amiodarone and was bridge from heparin drip to warfarin 5 milligram. He is on regular diet and was placed on a bowel regimen for constipation. His respiratory symptoms have cleared and he is on room air with 95% oxygen saturation. Therapy was initiated at the acute care facility and the patient transferred to us from [facility] on October 22, 2019 on FALLS OR SURGERIES: The patient has had major surgeries in the 100 days prior to admission. They had no falls in the past year. They had no falls with injury in the past year. PAST MEDICAL HISTORY: atrial fibrillation, hepatitis-C, hyperlipidemia, hypertension, 4 centimeter thoracoabdominal aneurysm, coronary arteriosclerosis, peripheral vascular disease with claudication, coronary artery disease, critical right lower extremity ischemia. PAST SURGICAL HISTORY: CABG, pacemaker, aortobifemoral bypass, right femoral endarterectomy, right femoral to above knee popliteal bypass with PT FE SOCIAL HISTORY: the patient lives in a 2 story home with the 5 steps to enter. He is able to live on the 1st floor. He will be leaving at his cousin's house at discharge. This is the home described. Former smoker quit 2 days prior to presentation. No alcohol use or drug use. FAMILY HISTORY: The patient will have to find out from the family members for any significant family history PRIOR LEVEL OF FUNCTION: Eating was INDEPENDENT Oral Care was INDEPENDENT Toileting Hygiene was INDEPENDENT Shower/Bathing was INDEPENDENT Upper Body Dressing was INDEPENDENT Lower Body Dressing was INDEPENDENT Alan
[2019-10-22] MEDS: WARFARIN (*PBKC) 2.5 MG TABLET PO (18:54)
[2019-10-22 18:55] VITALS: PULSE 69
[2019-10-22] MEDS: AMIODARONE HCL 200 MG TABLET 400 MG PO (18:55)
[2019-10-22] MEDS: ACETAMINOPHEN 325 MG TABLET 650 MG PO ×2 (19:21→23:43)
[2019-10-22] MEDS: ONDANSETRON HCL ODT 4 MG TABLET PO (19:22)
[2019-10-22 20:21] VITALS: PULSE 72
[2019-10-22] MEDS: METOPROLOL TARTRATE 50 MG TAB 100 MG PO (20:21)
[2019-10-22] MEDS: ATORVASTATIN 40 MG TABLET PO (20:21)
[2019-10-22 21:23] VITALS: BP 152/85; PULSE 62; RESP 16; TEMP 36.3; O2SAT 97
[2019-10-23] VITALS (7 sets, daily range): BP systolic 149–172; BP diastolic 80–94; PULSE 18–78; RESP 18–20; TEMP 36.2–36.9; O2SAT 99; BMI 25.7
[2019-10-23 04:45] LABS: Basophils Percent Auto 0.1 % (0.2-1.2); Eosinophils Absolute Auto 0.1 K/mm3 (0-0.3); Eosinophils Percent Auto 1.4 % (0-4.4); Hematocrit 27.2 % (42.0-52.0); Hemoglobin 8.5 g/dL (14.0-18.0); Immature Granulocyte Absolute 0.05 K/mm3 (0.00-0.031); Immature Granulocyte Percent A 0.6 % (0-0.5); Immature Platelet Fraction Pct 6.1 % (0.9-11.2); Lymphocytes Absolute Auto 1.57 K/mm3 (0.9-3.2); Lymphocytes Percent Auto 18.5 % (18.3-44.2); Mean Corpuscular HGB Conc 31.3 g/dl (32-36); Mean Corpuscular Hemoglobin 29.8 pg (26-34); Mean Corpuscular Volume 95.4 fl (80-100); Mean Platelet Volume 11.3 fl (7.4-10.4); Monocytes Absolute Auto 0.6 K/mm3 (0.1-0.6); Monocytes Percent Auto 6.7 % (2.6-8.5); Neutrophils Absolute Auto 6.2 K/mm3 (1.3-6.7); Neutrophils Percent Auto 72.7 % (45.5-73.1); Platelet Count Result 99 k/mm3 (150-375); Red Blood Count 2.85 M/mm3 (4.6-6.20); Red Cell Distribution Width 17.7 % (11.5-14.5); White Blood Count 8.5 K/mm3 (4.5-10.0)
[2019-10-23 04:56] LABS: INR 2.4; Prothrombin Time 25.6 Seconds (11.1-14.7)
[2019-10-23 04:59] LABS: Blood Urea Nitrogen 16 mg/dL (9-20); Calcium 7.9 mg/dL (8.4-10.2); Carbon Dioxide 32 mmol/L (22-30); Chloride 103 mmol/L (98-107); Estimated CRCL calculation 68 ml/min; Estimated Glomerular Filt Rate > 60; Glucose 112 mg/dL (75-110); Potassium 4.2 mmol/L (3.4-5.0); Sodium 134 mmol/L (137-145)
[2019-10-23] MEDS: ACETAMINOPHEN 325 MG TABLET 650 MG PO (06:37)
[2019-10-23] MEDS: ONDANSETRON HCL ODT 4 MG TABLET PO ×3 (06:40→19:38)
[2019-10-23] MEDS: lisinopriL 20 MG TABLET 40 MG PO (08:57)
[2019-10-23] MEDS: METOPROLOL TARTRATE 50 MG TAB 100 MG PO ×2 (08:58→20:28)
[2019-10-23] MEDS: ASPIRIN 81 MG ENTERIC TABLET PO (08:58)
[2019-10-23] MEDS: AMIODARONE HCL 200 MG TABLET 400 MG PO ×3 (08:58→17:24)
--- NOTE | 2019-10-23 11:44 | WPDNEURORHBP ---
Subjective Date/time seen: 10/23/19 11:44 vascular insufficiency of severe degree Review of Systems Review of Systems: All systems reviewed & are unremarkable except as noted in HPI and below Functional Status Ambulation Ability Ability to Ambulate 50 Feet With 2 Turns: Minimum Assistance X 1 Ambulation Assistive Devices: Walker, Wheeled Transfers Ability Ability to Transfer In/Out of Chair: Contact Guard Exam Const: General: cooperative, comfortable and no acute distress HENMT: Head: normal to inspection Ears: hearing grossly normal bilaterally General nose exam: Normal external nose present Face and sinus: normal facial exam Mouth: Yes Normal oral and palatal mucosa present Eyes: General: appearance normal, both eyes and all related structures Neck: Neck: full ROM Chest: Chest palpation & inspection: normal inspection of the chest Resp: Effort & Inspection: normal respiratory effort and able to speak in complete sentences Auscultation: clear to auscultation bilaterally Cardio: Rate: regular rate Rhythm: regular rhythm (AF) Skin: General skin exam: normal color and no rashes or lesions noted Neuro: General: patient oriented x3, moves all extremities, CN's II-XI intact bilaterally and Unable to assess gait Cranial nerves: Yes CN's II-XII intact bilaterally, Yes Equal, round and reactive pupils present, Yes Nystagmus not present, Yes Normal facial strength present, Yes Midline tongue present, Yes Normal gag reflex present, Yes Symmetric palate elevation present and Yes Ability to bilaterally rotate head present Cognition (Neuro): normal cognition Speech: normal speech Gait exam (Neuro): Unable to assess gait Motor exam (neuro): 5/5 motor strength present throughout Sensory Exam: Sensory deficit (Neuro) (distally) Deep tendon reflexes (DTR's): Right triceps reflex intensity grade: 1+, Left triceps reflex intensity grade: 1+, Rt Biceps (C5, C6): 1+, Left biceps reflex intensity grade: 1+, Right brachioradialis reflex intensity grade: 1+, Left brachioradialis reflex intensity grade: 1+, Right patellar reflex intensity grade: 1+, Left patellar reflex intensity grade: 1+, Right ankle reflex intensity grade: 0 and Left ankle reflex intensity grade: 0 Plantar Reflex Responses: downgoing: bilateral Coordination: [id number] test normal Extrem: General: normal to inspection Right lower extremity: normal to inspection and normal capillary refill Left lower extremity: normal to inspection and normal capillary refill Psych: Appearance: grossly normal Objective Data Vital Signs Vital Signs: Vital Signs - 24 hr 10/22/19 16:00 10/22/19 18:55 10/22/19 20:21 Temperature 36.2 C L Pulse Rate 69 69 72 Respiratory Rate 20 Blood Pressure 153/95 H Pulse Oximetry 97 10/22/19 21:23 10/23/19 06:00 10/23/19 08:55 Temperature 36.3 C L 36.9 C Pulse Rate 62 60 66 Respiratory Rate 16 20 Blood Pressure 152/85 H 158/91 H 172/94 H Pulse Oximetry 97 99 Intake/Output Intake/Output: Intake & Output 10/20/19 10/21/19 10/22/19 10/23/19 23:59 23:59 23:59 23:59 Intake Total 240 Balance 240 Meds/Results Medications: Active Medications Generic Name Dose Route Start Last Admin Trade Name Freq PRN Reason Stop Dose Admin Acetaminophen 650 mg 10/22/19 19:00 10/23/19 06:37 Tylenol Tablet PO 650 mg Q6H ANGIE Administration Amiodarone HCl 200 mg 10/25/19 09:00 Pacerone PO BID ANGIE Amiodarone HCl 400 mg 10/22/19 17:00 10/23/19 08:58 Pacerone PO 10/24/19 23:59 400 mg TID ANGIE Administration Aspirin 81 mg 10/23/19 09:00 10/23/19 08:58 Aspirin Ec PO 81 mg DAILY ANGIE Administration Atorvastatin Calcium 40 mg 10/22/19 21:00 10/22/19 20:21 Lipitor PO 40 mg HS ANGIE Administration Lisinopril 40 mg 10/23/19 09:00 10/23/19 08:57 Prinivil PO 40 mg DAILY ANGIE Administration Metoprolol Tartrate 100 mg 10/22/19 21:00 10/23/19 08:58 Lopressor PO
--- NOTE | 2019-10-23 15:19 | PCPTNOTE ---
Patient refused treatment this session due to not feeling well. Attempted to see patient x2 in PM, at 13:30 and at 14:35, however patient continues to refused due to feeling nauseous. Patient declined supine exercises or any out of bed therapy stating, If I move at all, I am going to throw up everywhere. I just can't do it right today. Patient educated on importance of participating in therapy. RN informed of patient's complaints. Sallie Phelan, GLOBAL PROCESS OWNER
[2019-10-23] MEDS: WARFARIN (*PBKC) 2.5 MG TABLET PO (17:28)
[2019-10-23] MEDS: ATORVASTATIN 40 MG TABLET PO (20:26)
[2019-10-23] MEDS: DOCUSATE SODIUM 100 MG CAPSULE PO (20:28)
[2019-10-24] VITALS (7 sets, daily range): BP systolic 142–165; BP diastolic 76–86; PULSE 58–61; RESP 18–20; TEMP 36.6–37.4; O2SAT 98–100
[2019-10-24] MEDS: ONDANSETRON HCL ODT 4 MG TABLET PO ×3 (00:26→21:52)
[2019-10-24 04:57] LABS: INR 2.4; Prothrombin Time 25.7 Seconds (11.1-14.7)
--- NOTE | 2019-10-24 07:40 | PCOTNOTE ---
Attempted OT treatment. Patient complains of nausea and stomach pain. Patient reports he really wants to get up and take a shower but cannot do it at this time. Patient requests a rest break before completion. Will continue to attempt.
[2019-10-24] MEDS: METOPROLOL TARTRATE 50 MG TAB 100 MG PO ×2 (08:13→19:34)
[2019-10-24] MEDS: AMIODARONE HCL 200 MG TABLET 400 MG PO ×3 (08:13→17:07)
[2019-10-24] MEDS: lisinopriL 20 MG TABLET 40 MG PO (08:13)
[2019-10-24] MEDS: ASPIRIN 81 MG ENTERIC TABLET PO (08:13)
[2019-10-24] MEDS: DOCUSATE SODIUM 100 MG CAPSULE PO ×2 (08:14→19:35)
[2019-10-24] MEDS: PANTOPRAZOLE 40 MG TABLET PO (10:33)
--- NOTE | 2019-10-24 10:58 | WPDNEURORHBP ---
Subjective Date/time seen: 10/24/19 10:58 Interval history: this is a 59-year-old gentleman is here after having had aortofemoral bypass bilaterally as mentioned in my initial history and physical examination for critical right limb ischemia which has been very well documented in his records. The patient is complaining of symptoms of GERD and will benefit from the PPI inhibitor therapy he also has a stage II coccyx wound for which Mepilex has been added prescribed his generalized weakness particularly the lower extremities more so than the upper extremities improving he has been very happy with the care he has been receiving Functional Status Ambulation Ability Ability to Ambulate 50 Feet With 2 Turns: Minimum Assistance X 1 Ambulation Assistive Devices: Walker, Wheeled Transfers Ability Ability to Transfer In/Out of Chair: Contact Guard Exam Const: General: comfortable and no acute distress HENMT: General nose exam: Normal nares present Mouth: Yes moist mucous membranes Eyes: General: appearance normal, both eyes and all related structures Neck: Neck: supple and no JVD Resp: Effort & Inspection: normal respiratory effort Auscultation: clear to auscultation bilaterally Cardio: Rate: regular rate Rhythm: regular rhythm Skin: General skin exam: normal color and no rashes or lesions noted Neuro: Other: patient is awake alert over when to time place and person has a normal speech impression normal cranial examination neurological deficit is the lower extremity weakness with the less so prominent upper extremity weakness with some sensory deficit in the lower extremities and evidence of the peripheral vascular disease which has been surgery iced and I have os the attending nurse to check his arterial pulses in the lower extremities with the Doppler Extrem: General: normal to inspection Other: mild swelling of the distal legs without evidence of Yordan sign and without any evidence of calf tenderness Psych: Mental Status: mental status grossly normal Objective Data Vital Signs Vital Signs: Vital Signs - 24 hr 10/23/19 14:00 10/23/19 14:22 10/23/19 17:24 Temperature 36.2 C L Pulse Rate 78 18 L 72 Respiratory Rate 18 Blood Pressure 168/80 H Pulse Oximetry 99 10/23/19 20:28 10/23/19 22:00 10/24/19 06:00 Temperature 36.7 C 36.7 C Pulse Rate 59 L 59 L 58 L Respiratory Rate 19 18 Blood Pressure 149/86 H 165/77 H Pulse Oximetry 99 98 10/24/19 08:13 Temperature Pulse Rate 60 Respiratory Rate Blood Pressure Pulse Oximetry Intake/Output Intake/Output: Intake & Output 10/21/19 10/22/19 10/23/19 10/24/19 23:59 23:59 23:59 23:59 Intake Total 240 360 240 Balance 240 360 240 Meds/Results Medications: Active Medications Generic Name Dose Route Start Last Admin Trade Name Freq PRN Reason Stop Dose Admin Acetaminophen 650 mg 10/23/19 18:29 Tylenol Tablet PO Q6H PRN Pain Rated 1-3 Amiodarone HCl 200 mg 10/25/19 09:00 Pacerone PO BID ANGIE Amiodarone HCl 400 mg 10/22/19 17:00 10/24/19 08:13 Pacerone PO 10/24/19 23:59 400 mg TID ANGIE Administration Aspirin 81 mg 10/23/19 09:00 10/24/19 08:13 Aspirin Ec PO 81 mg DAILY ANGIE Administration Atorvastatin Calcium 40 mg 10/22/19 21:00 10/23/19 20:26 Lipitor PO 40 mg HS ANGIE Administration Docusate Sodium 100 mg 10/23/19 21:00 10/24/19 08:14 Colace Capsule PO 100 mg Q12HR ANGIE Administration Lisinopril 40 mg 10/23/19 09:00 10/24/19 08:13 Prinivil PO 40 mg DAILY [facility] Administration Metoprolol Tartrate 100 mg 10/22/19 21:00 10/24/19 08:13 Lopressor PO 100 mg Q12HR ANGIE Administration Ondansetron HCl 4 mg 10/23/19 12:17 10/24/19 00:26 Zofran Odt PO 4 mg Q4H PRN Administration Nausea And Vomiting Oxycodone HCl 5 mg 10/22/19 16:49 10/24/19 08:14 Roxicodone Ir Tablet PO 5 mg Q4H PRN Administration Pain 7-10 Pantoprazo
--- NOTE | 2019-10-24 12:31 | RPD ---
INDIVIDUALIZED PLAN OF CARE FOR Ricci Russell Brief Synthesis of Pre-Admission Screen, Post-Admission Evaluation and Therapy Evaluations: The patient presents to rehab with critical right lower limb ischemia. Comorbidities include status post aortobifemoral bypass and right femoral AK popliteal bypass with PTFE, atrial fibrillation with RVR requiring cardioversion, constipation, acute pain, hypertension, hyperlipidemia. The patient requires physician services for medical oversight, management of post-op complications in the setting of present comorbidities, management of persistent atrial fibrillation with RVT, uncontrolled hypertension, and pain management. Post-procedure complications have included atrial fibrillation with RVR requiring cardioversion, constipation, hypertension, acute blood loss anemia, respiratory congestion, and acute pain. The patient requires nursing services for anticoagulation therapy, DVT prophylactics, infection protection, medication management and education, pressure relief, and wound care. Deficits include:ADLs, Balance, Endurance, Mobility, Pain Management, ROM, Safety, Strength,Transfers Procedures Nurse/Case Management for: Discharge Planning and Patient/Family Counseling Physical Therapy: 5 days per week for 90 minutes. Treatments may include: Therapeutic Exercise, Gait Training, Neuromuscular Re-education, Transfer Training, Community Reintegration, Bed Mobility, Patient/Family Education, Wheelchair Mobility Group Therapy/Concurrent Therapy Rationales: -Improve attention span during functional activities in a distracted environment. -Enhance problem solving and/or adequate judgment skills during functional activities in a distracted environment. -Promote increased safety awareness in a distracted environment to reduce fall risk with functional tasks, transfers, and ambulation to allow a more safe, self-sufficient return to the home environment. -Improve dynamic balance skills to promote safety and independence with functional activities in a distracted environment for maximum gain. Occupational Therapy: 5 days per week for 90 minutes. Treatments may include: Therapeutic Exercise, Therapeutic Activity, Cognitive Training, Self-Care Transfer Training, Community Reintegration, Home Management, Patient/Family Education, Wheelchair Mobility Training, Energy Conservation Training Group Therapy/Concurrent Therapy Rationales: -Allow therapist to observe and teach generalization and carry-over of skills learned in individual therapy. -Enhance problem solving and sequencing skills during therapeutic activities in a distracted environment. -Promote increased safety awareness in a realistic setting to reduce fall risk with functional tasks due to visual and verbal distractions. -Increase functional level with ADLs, ADL transfers and use of adaptive equipment through therapeutic activities with others while promoting safety to allow a more safe, self-sufficient return home. Medical Prognosis: Good Anticipated Length of Stay: 10 days Rehab Goals: Eating Goal: 06-Independent Oral Hygiene Goal: 06-Independent Toileting Hygiene Goal: 06-Independent Shower/Bathe Self Goal: 05-Setup or Clean Up Assistance Upper Body Dressing Goal: 06-Independent Lower Body Dressing Goal: 06-Independent Putting On/Taking Off Footwear Goal: 06-Independent Rolling Left and Right Goal: 06-Independent Sit to Lying Goal: 06-Independent Lying to Sitting on Side of Bed Goal: 06-Independent Sit to Stand Goal: 06-Independent Chair/Rit-zq-Bogom Transfer Goal: 06-Independent Toilet Transfer Goal: 06-Independent Car Transfer Goal: 06-Independent Walk 10' Goal: 06-Independent Walk 50' with Two Turns Goal: 06-Independent Walk 150' Goal: 06-Independent Walk 10' on Uneven Surface Goal: 06-Independent 1 Step (Curb) Goal: 06-Independent 4 Steps Goal: 06-Independent 12 Steps Goal Score: Picking Up Object Goal: 06-Independent Wheel 50' with Two Turns Score: 06-Inde
--- NOTE | 2019-10-24 15:51 | PCPTNOTE ---
Ricci Russell was evaluated for a wheeled walker on 10/24/2019 by this physical therapist lpn or medical assistant. The wheeled walker will resolve patient's mobility limitations and will be used for ADL's within the home. The patient can safely use the wheeled walker. ?The wheeled walker will resolve the patient?s mobility deficits, including decreased endurance and lower extremity strength.
[2019-10-24] MEDS: WARFARIN (*PBKC) 2.5 MG TABLET PO (17:07)
[2019-10-24] MEDS: ATORVASTATIN 40 MG TABLET PO (19:34)
[2019-10-25] VITALS (7 sets, daily range): BP systolic 111–152; BP diastolic 68–91; PULSE 58–64; RESP 18–20; TEMP 36.7–36.8; O2SAT 96–99
[2019-10-25] MEDS: ONDANSETRON HCL ODT 4 MG TABLET PO ×2 (03:52→20:40)
--- NOTE | 2019-10-25 04:11 | PC.NURSE ---
[address] moran regarding patients complaints of heartburn and indigestion. patient has received pain meds and zofran for complaints of pain and nausea tonight. patient states that protonix that the ordered yesterday relieved heartburn and indigestion. new orders received.
[2019-10-25] MEDS: PANTOPRAZOLE 40 MG TABLET PO ×3 (04:22→20:40)
[2019-10-25 05:02] LABS: INR 2.3; Prothrombin Time 24.6 Seconds (11.1-14.7)
[2019-10-25] MEDS: DOCUSATE SODIUM 100 MG CAPSULE PO ×2 (08:49→20:40)
[2019-10-25] MEDS: METOPROLOL TARTRATE 50 MG TAB 100 MG PO ×2 (08:49→20:40)
[2019-10-25] MEDS: AMIODARONE HCL 200 MG TABLET PO ×2 (08:49→17:09)
[2019-10-25] MEDS: ASPIRIN 81 MG ENTERIC TABLET PO (08:50)
[2019-10-25] MEDS: lisinopriL 20 MG TABLET 40 MG PO (08:50)
--- NOTE | 2019-10-25 12:26 | WPDNEURORHBP ---
Subjective Date/time seen: 10/25/19 12:26 Interval history: this 59-year-old patient who has significant peripheral vascular disease was admitted with the admitting diagnosis of critical right limb ischemia followed by bilateral aortofemoral bypass graft the details are available in my H and P. He has been complaining of some GE reflux which has gotten better by the use of Protonix with the increased dose. At this time of the examination he denies any headache nausea vomiting chest pain shortness of breath fever chills or sore throat Review of Systems Review of Systems: All systems reviewed & are unremarkable except as noted in HPI and below Functional Status Ambulation Ability Ability to Ambulate 10 Feet: Standby Assistance Ability to Ambulate 50 Feet With 2 Turns: Standby Assistance Ability to Ambulate 150 Feet: Standby Assistance Ambulation Assistive Devices: Walker, Wheeled Transfers Ability Ability to Transfer In/Out of Chair: Independent Exam Const: General: comfortable and no acute distress HENMT: General nose exam: Normal nares present Mouth: Yes moist mucous membranes Eyes: General: appearance normal, both eyes and all related structures Neck: Neck: supple and no JVD Resp: Effort & Inspection: normal respiratory effort Auscultation: clear to auscultation bilaterally Cardio: Rate: regular rate Rhythm: regular rhythm GI: GI Palp: Yes Soft to palpation Auscultation: normal bowel sounds Skin: General skin exam: normal color and no rashes or lesions noted Neuro: Other: patient is doing fairly well he is awake alert oriented times place and person is speech and language functions are normal cranial examination is normal his strength in both upper lower extremities improving and is walking with little help and the walker quite well Extrem: General: normal to inspection Other: the surgical incision at the anterior abdomen and both groin is clean and healthy Psych: Mental Status: mental status grossly normal Objective Data Vital Signs Vital Signs: Vital Signs - 24 hr 10/24/19 14:00 10/24/19 17:07 10/24/19 19:34 Temperature 36.6 C Pulse Rate 61 61 60 Respiratory Rate 20 Blood Pressure 145/86 H Pulse Oximetry 99 10/24/19 22:00 10/25/19 06:00 10/25/19 08:49 Temperature 37.4 C 36.7 C Pulse Rate 60 60 62 Respiratory Rate 18 18 Blood Pressure 142/76 H 152/91 H Pulse Oximetry 100 99 Intake/Output Intake/Output: Intake & Output 10/22/19 10/23/19 10/24/19 10/25/19 23:59 23:59 23:59 23:59 Intake Total 240 360 720 500 Balance 240 360 720 500 Meds/Results Medications: Active Medications Generic Name Dose Route Start Last Admin Trade Name Freq PRN Reason Stop Dose Admin Acetaminophen 650 mg 10/23/19 18:29 Tylenol Tablet PO Q6H PRN Pain Rated 1-3 Amiodarone HCl 200 mg 10/25/19 09:00 10/25/19 08:49 Pacerone PO 200 mg BID ANGIE Administration Aspirin 81 mg 10/23/19 09:00 10/25/19 08:50 Aspirin Ec PO 81 mg DAILY ANGIE Administration Atorvastatin Calcium 40 mg 10/22/19 21:00 10/24/19 19:34 Lipitor PO 40 mg HS ANGIE Administration Docusate Sodium 100 mg 10/23/19 21:00 10/25/19 08:49 Colace Capsule PO 100 mg Q12HR ANGIE Administration Lisinopril 40 mg 10/23/19 09:00 10/25/19 08:50 Prinivil PO 40 mg DAILY ANGIE Administration Metoprolol Tartrate 100 mg 10/22/19 21:00 10/25/19 08:49 Lopressor PO 100 mg Q12HR ANGIE Administration Ondansetron HCl 4 mg 10/23/19 12:17 10/25/19 03:52 Zofran Odt PO 4 mg Q4H PRN Administration Nausea And Vomiting Oxycodone HCl 5 mg 10/22/19 16:49 10/25/19 08:57 Roxicodone Ir Tablet PO 5 mg Q4H PRN Administration Pain 7-10 Pantoprazole Sodium 40 mg 10/25/19 09:00 10/25/19 08:50 Protonix PO 40 mg Q12HR ANGIE Administration Polyethylene Glycol 17 gm 10/22/19 16:49 Miralax PO DAILY PRN Constipation Senna 8.6 mg 0
[2019-10-25] MEDS: EUCERIN CREAM 120 GM JAR 1 APPLIC TOPICAL (16:05)
[2019-10-25] MEDS: WARFARIN (*PBKC) 2.5 MG TABLET PO (17:07)
[2019-10-25] MEDS: ATORVASTATIN 40 MG TABLET PO (20:41)
[2019-10-26] VITALS (7 sets, daily range): BP systolic 124–167; BP diastolic 61–88; PULSE 59–68; RESP 18–20; TEMP 36.7–37; O2SAT 99
[2019-10-26 04:57] LABS: INR 2.6; Prothrombin Time 27.2 Seconds (11.1-14.7)
[2019-10-26] MEDS: EUCERIN CREAM 120 GM JAR 1 APPLIC TOPICAL (09:00)
[2019-10-26] MEDS: PANTOPRAZOLE 40 MG TABLET PO ×2 (09:02→19:58)
[2019-10-26] MEDS: lisinopriL 20 MG TABLET 40 MG PO (09:02)
[2019-10-26] MEDS: DOCUSATE SODIUM 100 MG CAPSULE PO ×2 (09:02→19:58)
[2019-10-26] MEDS: AMIODARONE HCL 200 MG TABLET PO ×2 (09:03→16:59)
[2019-10-26] MEDS: ASPIRIN 81 MG ENTERIC TABLET PO (09:03)
[2019-10-26] MEDS: METOPROLOL TARTRATE 50 MG TAB 100 MG PO ×2 (09:03→19:58)
--- NOTE | 2019-10-26 11:33 | WPDNEURORHBP ---
Subjective Date/time seen: 10/26/19 11:33 Interval history: this 59-year-old gentleman is admitted here with a critical right limb ischemia for which she had aortofemoral bypass surgery and is recuperating quite well. He does have GERD post operatively and is getting better with the use of Protonix twice a day and symptoms are relatively well controlled. His generalized weakness inability to walk and activities of daily living has been improving he denies any fever chills sore throat headache nausea vomiting. Review of Systems Review of Systems: All systems reviewed & are unremarkable except as noted in HPI and below Functional Status Ambulation Ability Ability to Ambulate 10 Feet: Standby Assistance Ability to Ambulate 50 Feet With 2 Turns: Standby Assistance Ability to Ambulate 150 Feet: Standby Assistance Ambulation Assistive Devices: Walker, Wheeled Transfers Ability Ability to Transfer In/Out of Chair: Independent Exam Const: General: comfortable and no acute distress HENMT: General nose exam: Normal nares present Mouth: Yes moist mucous membranes Eyes: General: appearance normal, both eyes and all related structures Neck: Neck: supple and no JVD Resp: Effort & Inspection: normal respiratory effort Auscultation: clear to auscultation bilaterally Cardio: Rate: regular rate Rhythm: regular rhythm GI: GI Palp: Yes Soft to palpation Auscultation: normal bowel sounds Skin: General skin exam: normal color and no rashes or lesions noted Neuro: Other: Patient is awake and alert of oriented times place person has normal speech and the question normal cranial examination symmetrical strength which is significantly improving and he is engage in therapy and doing better in the activities of daily living Extrem: General: normal to inspection Psych: Mental Status: mental status grossly normal Objective Data Vital Signs Vital Signs: Vital Signs - 24 hr 10/25/19 13:10 10/25/19 14:00 10/25/19 17:09 Temperature 36.8 C Pulse Rate 62 61 62 Respiratory Rate 18 18 Blood Pressure 137/87 Pulse Oximetry 99 99 10/25/19 20:40 10/25/19 21:47 10/26/19 06:00 Temperature 36.8 C 36.8 C Pulse Rate 64 58 L 67 Respiratory Rate 20 20 Blood Pressure 111/68 167/88 H Pulse Oximetry 96 99 10/26/19 09:03 Temperature Pulse Rate 68 Respiratory Rate Blood Pressure Pulse Oximetry Intake/Output Intake/Output: Intake & Output 10/23/19 10/24/19 10/25/19 10/26/19 23:59 23:59 23:59 23:59 Intake Total 688 492 4806 500 Balance 057 359 5307 500 Meds/Results Medications: Active Medications Generic Name Dose Route Start Last Admin Trade Name Freq PRN Reason Stop Dose Admin Acetaminophen 650 mg 10/23/19 18:29 Tylenol Tablet PO Q6H PRN Pain Rated 1-3 Amiodarone HCl 200 mg 10/25/19 09:00 10/26/19 09:03 Pacerone PO 200 mg BID ANGIE Administration Aspirin 81 mg 10/23/19 09:00 10/26/19 09:03 Aspirin Ec PO 81 mg DAILY [facility] Administration Atorvastatin Calcium 40 mg 10/22/19 21:00 10/25/19 20:41 Lipitor PO 40 mg HS [facility] Administration Docusate Sodium 100 mg 10/23/19 21:00 10/26/19 09:02 Colace Capsule PO 100 mg Q12HR [facility] Administration Lisinopril 40 mg 10/23/19 09:00 10/26/19 09:02 Prinivil PO 40 mg DAILY [facility] Administration Metoprolol Tartrate 100 mg 10/22/19 21:00 10/26/19 09:03 Lopressor PO 100 mg Q12HR [facility] Administration Multi-Ingred Cream/Lotion/Oil/Oint 1 applic 10/25/19 09:00 10/26/19 09:00 Minerin Creme TOPICAL 1 applic QAM [facility] Administration Ondansetron HCl 4 mg 10/23/19 12:17 10/25/19 20:40 Zofran Odt PO 4 mg Q4H PRN Administration Nausea And Vomiting Oxycodone HCl 5 mg 10/22/19 16:49 10/26/19 09:00 Roxicodone Ir Tablet PO 5 mg Q4H PRN Administration Pain 7-10 Pantoprazole Sodium 40 mg 10/25/19 09:00 10/26/19 09:02 Protonix PO 40 mg Q12HR [facility] Administr
--- NOTE | 2019-10-26 12:36 | PCPTNOTE ---
Patient refused treatment this session due to not feeling well. Attempted to see patient at 8:30 for PT treatment. Patient reports that he has heartburn and feels sick to his stomach. Patient states that he will not do any therapy until he has his medicine. RN informed and states that his medicine is due at 9:00. Patient rescheduled for later time to complete PT treatments.
[2019-10-26] MEDS: WARFARIN (*PBKC) 2.5 MG TABLET PO (16:59)
[2019-10-26] MEDS: ONDANSETRON HCL ODT 4 MG TABLET PO (19:56)
[2019-10-26] MEDS: ATORVASTATIN 40 MG TABLET PO (19:57)
[2019-10-27 05:21] LABS: INR 2.6; Prothrombin Time 27.2 Seconds (11.1-14.7)
[2019-10-27] MEDS: ONDANSETRON HCL ODT 4 MG TABLET PO ×2 (05:50→20:25)
[2019-10-27 06:00] VITALS: BP 134/74; PULSE 60; RESP 18; TEMP 36.8; O2SAT 99
[2019-10-27 08:32] VITALS: PULSE 60
[2019-10-27] MEDS: ASPIRIN 81 MG ENTERIC TABLET PO (08:32)
[2019-10-27] MEDS: METOPROLOL TARTRATE 50 MG TAB 100 MG PO ×2 (08:32→20:25)
[2019-10-27] MEDS: lisinopriL 20 MG TABLET 40 MG PO (08:32)
[2019-10-27] MEDS: AMIODARONE HCL 200 MG TABLET PO ×2 (08:32→16:26)
[2019-10-27] MEDS: EUCERIN CREAM 120 GM JAR 1 APPLIC TOPICAL (08:33)
[2019-10-27] MEDS: DOCUSATE SODIUM 100 MG CAPSULE PO ×2 (08:33→20:25)
[2019-10-27] MEDS: PANTOPRAZOLE 40 MG TABLET PO ×2 (08:33→20:26)
--- NOTE | 2019-10-27 12:44 | PCDIET ---
Nutrition Follow-Up Complete: Nutrition Diagnosis: Decreased sodium/fat needs related to cardiovascular disease as evidenced by hx HLP, HTN, CAD s/p CABG, PVD Nutrition Goals: Patient to consume 75% of meals or greater. Goal in progress. Patient not consistently eating more than 75% of meals but states appetite has improved significantly and feels he is eating well. Declines oral supplements at this time. Remains on regular diet which is appropriate. Last recorded weight is 81.5 kg. Recommend obtaining new weight. Bowel Motility: Last documented bowel movement on 10/26/19. Labs Reviewed: No new BMP available. Meds Noted: Colace, Protonix, Coumadin Additional Notes: Stage II area to coccyx. Venous stasis ulcers to right first and fifth toes. Reviewed high protein foods to choose to promote wound healing. Nutrition Monitoring and Evaluation: Follow up every 5 days.
[2019-10-27 14:00] VITALS: BP 148/76; PULSE 69; RESP 20; TEMP 36.6; O2SAT 97
--- NOTE | 2019-10-27 16:05 | WPDNEURORHBP ---
Subjective Date/time seen: 10/27/19 16:05 Interval history: this 59-year-old gentleman with the underlying peripheral vascular disease is here after having had critical right limb ischemia followed by aortofemoral bypass graft he is on a Coumadin and his INR is 2.6 which is therapeutic doing fairly well his weakness of generalized nature is improving his quite comfortable and denies any headache nausea vomiting chest pain shortness of breath fever chills or sore throat Review of Systems Review of Systems: All systems reviewed & are unremarkable except as noted in HPI and below Functional Status Ambulation Ability Ability to Ambulate 10 Feet: Independent Ability to Ambulate 50 Feet With 2 Turns: Independent Ability to Ambulate 150 Feet: Independent Ambulation Assistive Devices: None Transfers Ability Ability to Transfer In/Out of Chair: Independent Exam Const: General: comfortable and no acute distress HENMT: General nose exam: Normal nares present Mouth: Yes moist mucous membranes Eyes: General: appearance normal, both eyes and all related structures Neck: Neck: supple and no JVD Resp: Effort & Inspection: normal respiratory effort Auscultation: clear to auscultation bilaterally Cardio: Rate: regular rate Rhythm: regular rhythm Skin: General skin exam: normal color and no rashes or lesions noted Neuro: Other: patient is awake alert well oriented in time place and person is speech and language functions are normal cranial exam shows normal the strength is improving and engage in therapy no lateralizing focal motor deficits noted but still needing assistance because of the postsurgical nature and recent surgery Extrem: General: normal to inspection Psych: Mental Status: mental status grossly normal Objective Data Vital Signs Vital Signs: Vital Signs - 24 hr 10/26/19 16:59 10/26/19 19:58 10/26/19 22:00 Temperature 36.7 C Pulse Rate 66 64 59 L Respiratory Rate 19 Blood Pressure 124/61 Pulse Oximetry 99 10/27/19 06:00 10/27/19 08:32 10/27/19 14:00 Temperature 36.8 C 36.6 C Pulse Rate 60 60 69 Respiratory Rate 18 20 Blood Pressure 134/74 148/76 H Pulse Oximetry 99 97 Intake/Output Intake/Output: Intake & Output 10/24/19 10/25/19 10/26/19 10/27/19 23:59 23:59 23:59 23:59 Intake Total 720 1100 980 480 Balance 720 1100 980 480 Meds/Results Medications: Active Medications Generic Name Dose Route Start Last Admin Trade Name Freq PRN Reason Stop Dose Admin Acetaminophen 650 mg 10/23/19 18:29 Tylenol Tablet PO Q6H PRN Pain Rated 1-3 Amiodarone HCl 200 mg 10/25/19 09:00 10/27/19 08:32 Pacerone PO 200 mg BID ANGIE Administration Aspirin 81 mg 10/23/19 09:00 10/27/19 08:32 Aspirin Ec PO 81 mg DAILY ANGIE Administration Atorvastatin Calcium 40 mg 10/22/19 21:00 10/26/19 19:57 Lipitor PO 40 mg HS [facility] Administration Docusate Sodium 100 mg 10/23/19 21:00 10/27/19 08:33 Colace Capsule PO 100 mg Q12HR [facility] Administration Lisinopril 40 mg 10/23/19 09:00 10/27/19 08:32 Prinivil PO 40 mg DAILY ANGIE Administration Metoprolol Tartrate 100 mg 10/22/19 21:00 10/27/19 08:32 Lopressor PO 100 mg Q12HR [facility] Administration Multi-Ingred Cream/Lotion/Oil/Oint 1 applic 10/25/19 09:00 10/27/19 08:33 Minerin Creme TOPICAL 1 applic QAM [facility] Administration Ondansetron HCl 4 mg 10/23/19 12:17 10/27/19 05:50 Zofran Odt PO 4 mg Q4H PRN Administration Nausea And Vomiting Oxycodone HCl 5 mg 10/22/19 16:49 10/27/19 12:23 Roxicodone Ir Tablet PO 5 mg Q4H PRN Administration Pain 7-10 Pantoprazole Sodium 40 mg 10/25/19 09:00 10/27/19 08:33 Protonix PO 40 mg Q12HR ANGIE Administration Polyethylene Glycol 17 gm 10/22/19 16:49 Miralax PO DAILY PRN Constipation Senna 8.6 mg 10/22/19 16:49 Senokot Tablet PO DAILY PRN Constipation Warfarin So
[2019-10-27] MEDS: WARFARIN (*PBKC) 2.5 MG TABLET PO (16:25)
[2019-10-27 16:26] VITALS: PULSE 69
[2019-10-27 20:25] VITALS: PULSE 68
[2019-10-27] MEDS: ATORVASTATIN 40 MG TABLET PO (20:26)
[2019-10-27 22:00] VITALS: BP 126/70; PULSE 61; RESP 16; TEMP 36.9; O2SAT 99
[2019-10-28 05:55] LABS: INR 2.4
[2019-10-28 06:00] VITALS: BP 157/82; PULSE 62; RESP 16; TEMP 36.8; O2SAT 97
[2019-10-28 09:25] VITALS: PULSE 62
[2019-10-28] MEDS: lisinopriL 20 MG TABLET 40 MG PO (09:25)
[2019-10-28] MEDS: METOPROLOL TARTRATE 50 MG TAB 100 MG PO ×2 (09:25→21:57)
[2019-10-28] MEDS: AMIODARONE HCL 200 MG TABLET PO ×2 (09:25→17:56)
[2019-10-28] MEDS: ASPIRIN 81 MG ENTERIC TABLET PO (09:25)
[2019-10-28] MEDS: PANTOPRAZOLE 40 MG TABLET PO ×2 (09:25→19:52)
[2019-10-28] MEDS: EUCERIN CREAM 120 GM JAR 1 APPLIC TOPICAL (09:25)
[2019-10-28] MEDS: DOCUSATE SODIUM 100 MG CAPSULE PO ×2 (09:25→21:56)
--- NOTE | 2019-10-28 12:59 | WPDNEURORHBP ---
Subjective Date/time seen: S/P Aortofemoral graft with peripheral arterial xylogfs23/28/20 12:59 Review of Systems Review of Systems: All systems reviewed & are unremarkable except as noted in HPI and below Functional Status Ambulation Ability Ability to Ambulate 10 Feet: Independent Ability to Ambulate 50 Feet With 2 Turns: Independent Ability to Ambulate 150 Feet: Independent Ambulation Assistive Devices: None Transfers Ability Ability to Transfer In/Out of Chair: Independent Exam Const: General: comfortable and no acute distress HENMT: Head: normal to inspection Ears: hearing grossly normal bilaterally General nose exam: Normal external nose present Face and sinus: normal facial exam Mouth: Yes Normal oral and palatal mucosa present Eyes: General: appearance normal, both eyes and all related structures Neck: Neck: full ROM Resp: Effort & Inspection: normal respiratory effort and able to speak in complete sentences Auscultation: clear to auscultation bilaterally Cardio: Rate: regular rate Rhythm: regular rhythm Skin: General skin exam: no rashes or lesions noted Neuro: General: patient oriented x3, moves all extremities, no focal motor deficits and CN's II-XI intact bilaterally Cranial nerves: Yes Equal, round and reactive pupils present, Yes Nystagmus not present, Yes Normal facial strength present, Yes Midline tongue present, Yes Symmetric palate elevation present and Yes Ability to bilaterally rotate head present Cognition (Neuro): normal cognition Speech: normal speech Motor exam (neuro): 5/5 motor strength present throughout Sensory Exam: normal sensation Deep tendon reflexes (DTR's): Right triceps reflex intensity grade: 1+, Left triceps reflex intensity grade: 1+, Rt Biceps (C5, C6): 1+, Left biceps reflex intensity grade: 1+, Right brachioradialis reflex intensity grade: 1+, Left brachioradialis reflex intensity grade: 1+, Right patellar reflex intensity grade: 1+, Left patellar reflex intensity grade: 1+, Right ankle reflex intensity grade: 0 and Left ankle reflex intensity grade: 0 Plantar Reflex Responses: downgoing: bilateral Psych: Appearance: grossly normal Objective Data Vital Signs Vital Signs: Vital Signs - 24 hr 10/27/19 14:00 10/27/19 16:26 10/27/19 20:25 Temperature 36.6 C Pulse Rate 69 69 68 Respiratory Rate 20 Blood Pressure 148/76 H Pulse Oximetry 97 10/27/19 22:00 10/28/19 06:00 10/28/19 09:25 Temperature 36.9 C 36.8 C Pulse Rate 61 62 62 Respiratory Rate 16 16 Blood Pressure 126/70 157/82 H Pulse Oximetry 99 97 Intake/Output Intake/Output: Intake & Output 10/25/19 10/26/19 10/27/19 10/28/19 23:59 23:59 23:59 23:59 Intake Total 1100 980 720 300 Balance 1100 980 720 300 Meds/Results Medications: Active Medications Generic Name Dose Route Start Last Admin Trade Name Freq PRN Reason Stop Dose Admin Acetaminophen 650 mg 10/23/19 18:29 Tylenol Tablet PO Q6H PRN Pain Rated 1-3 Amiodarone HCl 200 mg 10/25/19 09:00 10/28/19 09:25 Pacerone PO 200 mg BID ANGIE Administration Aspirin 81 mg 10/23/19 09:00 10/28/19 09:25 Aspirin Ec PO 81 mg DAILY ANGIE Administration Atorvastatin Calcium 40 mg 10/22/19 21:00 10/27/19 20:26 Lipitor PO 40 mg HS ANGIE Administration Docusate Sodium 100 mg 10/23/19 21:00 10/28/19 09:25 Colace Capsule PO 100 mg Q12HR ANGIE Administration Lisinopril 40 mg 10/23/19 09:00 10/28/19 09:25 Prinivil PO 40 mg DAILY ANGIE Administration Metoprolol Tartrate 100 mg 10/22/19 21:00 10/28/19 09:25 Lopressor PO 100 mg Q12HR ANGIE Administration Multi-Ingred Cream/Lotion/Oil/Oint 1 applic 10/25/19 09:00 10/28/19 09:25 Minerin Creme TOPICAL 1 applic QAM ANGIE Administration Ondansetron HCl 4 mg 10/23/19 12:17 10/27/19 20:25 Zofran Odt PO 4 mg Q4H PRN Administration Nausea And Vomiting Oxycodone HCl 5 mg 10/22/19 16:49
--- NOTE | 2019-10-28 13:51 | PC.NURSE ---
Therapy approached nursing staff stating patient rated pain 2/10 on pain scale to foot/toes. Therapy asked what pain med he could have for that rating. Nursing let her know tylenol was the pain medication for pain scale 1-3. Therapy let patient know first and patient got upset. Pt packed belongings and was going to walk out of the hospital because he wanted oxycodone. Dr Renee spoke with patient and told him to lay down and he would have nurse give him the oxycodone he wanted. Pain rated 2/10 when asked again. Oxycodone was given. Educated patient on pain scale and which meds covered which parts of the pain scale. pt laying in bed at this time. will continue to monitor.
--- NOTE | 2019-10-28 14:12 | PC.NURSE ---
pt refusing to let nursing staff obtain vital signs this shift.
--- NOTE | 2019-10-28 14:52 | PCOTNOTE ---
Attempted to see patient for OT this pm, however upon entering room, patient was packing all belongings. Pt stated, I'm not doing anymore therapy. I'm leaving. Right now. Pt agitated stating, They won't give me my pain medicine, and since they won't do anything for me, I'm leaving. As patient walked out into [facility], he met with Dr. Renee, who encouraged the patient to stay and explained to the patient the nurse was getting his pain medicine. Patient calmed down and walked back to room. Pt declined all therapy at this time.
--- NOTE | 2019-10-28 15:45 | PCPTNOTE ---
Patient refused remaining treatment session this date at 13:16. Patient missed 19 minutes of physical therapy minutes this date. See subjective section of PT treatment note 10/28/2019 at 13:01.
[2019-10-28 17:56] VITALS: PULSE 62
[2019-10-28] MEDS: WARFARIN (*PBKC) 2.5 MG TABLET PO (17:56)
[2019-10-28] MEDS: ONDANSETRON HCL ODT 4 MG TABLET PO (20:17)
[2019-10-28] MEDS: ATORVASTATIN 40 MG TABLET PO (21:56)
[2019-10-28 21:57] VITALS: PULSE 64
[2019-10-28 22:00] VITALS: BP 132/65; PULSE 61; RESP 18; TEMP 36.8; O2SAT 100
[2019-10-29 08:00] VITALS: PULSE 63; RESP 18; O2SAT 100
[2019-10-29 09:12] VITALS: PULSE 63
[2019-10-29] MEDS: ASPIRIN 81 MG ENTERIC TABLET PO (09:12)
[2019-10-29] MEDS: AMIODARONE HCL 200 MG TABLET PO (09:12)
[2019-10-29] MEDS: DOCUSATE SODIUM 100 MG CAPSULE PO (09:12)
[2019-10-29] MEDS: PANTOPRAZOLE 40 MG TABLET PO (09:12)
[2019-10-29] MEDS: lisinopriL 20 MG TABLET 40 MG PO (09:12)
[2019-10-29 09:13] VITALS: PULSE 63
[2019-10-29] MEDS: METOPROLOL TARTRATE 50 MG TAB 100 MG PO (09:13)
[2019-10-29] MEDS: EUCERIN CREAM 120 GM JAR 1 APPLIC TOPICAL (09:13)
--- NOTE | 2019-10-29 10:17 | PC.NURSE ---
Patient refuses to have lab work drawn today before being discharged. Lab was here twice to do it and patient said no both times.
--- NOTE | 2019-11-02 11:27 | PM.DS ---
DS: Diagnosis Admitting Diagnosis Admitting Diagnosis: Other disorder of circulatory system Discharge Diagnosis (1) Atrial fibrillation: Code(s): I48.91 - Unspecified atrial fibrillation Status: Acute (2) Hepatitis C: Code(s): B19.20 - Unspecified viral hepatitis C without hepatic coma Status: Acute (3) History of aorto-femoral bypass: Code(s): Z95.828 - Presence of other vascular implants and grafts Status: Acute (4) Peripheral vascular disease: Code(s): I73.9 - Peripheral vascular disease, unspecified Status: Acute (5) VHD (valvular heart disease): Code(s): I38 - Endocarditis, valve unspecified Status: Acute (6) AAA (abdominal aortic aneurysm) without rupture: Code(s): I71.4 - Abdominal aortic aneurysm, without rupture Status: Acute (7) Tobacco use: Code(s): Z72.0 - Tobacco use Status: Acute (8) CAD (coronary artery disease): Qualifiers: Coronary Disease-Associated Artery/Lesion type: bypass graft [place] vs. transplanted heart: [place] heart Associated angina: with unspecified angina Qualified Code(s): I25.709 - Atherosclerosis of coronary artery bypass graft(s), unspecified, with unspecified angina pectoris Code(s): I25.10 - Atherosclerotic heart disease of [place] coronary artery without angina pectoris Status: Chronic (9) HLD (hyperlipidemia): Qualifiers: Hyperlipidemia type: unspecified Qualified Code(s): E78.5 - Hyperlipidemia, unspecified Code(s): E78.5 - Hyperlipidemia, unspecified Status: Chronic (10) HTN (hypertension): Qualifiers: Hypertension type: unspecified Qualified Code(s): I10 - Essential (primary) hypertension Code(s): I10 - Essential (primary) hypertension Status: Chronic (11) Chest pain: Qualifiers: Chest pain type: unspecified Qualified Code(s): R07.9 - Chest pain, unspecified Code(s): R07.9 - Chest pain, unspecified Status: Acute DS: Summary Hospital Course Reason for hospitalization: this 59-year-old right-handed gentleman with a past medical history of atrial fibrillation hepatitis C hyperlipidemia hypertension and coronary atherosclerosis is status post coronary artery bypass graft with AVR and MVR replacement was admitted because of severe critical right lower ischemia lower limb ischemia /status post aortofemoral bypass/ right femoral endarterectomy and right femoral to above knee popliteal bypass with PT FF on October 11, 2019 at the [facility] Multiple other comorbidities have been mentioned in my initial history and physical examination and the above lines he received the PT OT and the medical management of his underlying medical issues Hospital Course: patient was able to achieve the following independent measures eating independent overall hygiene independent toileting independent bathing independent upper body dressing independent lower body dressing independent footwear independent rolling in bed independent sitting to lying independent lying to sitting independent sit to stand independent chair transfers independent 12 transfers independent car transfers independent walking 10 feet independent walking 50 feet with 2 turns independent walking 150 feet independent walking 10 feet uneven surfaces independent car burst of independent 4 steps independent 12 steps independent picking up objects independent wheelchair 50 feet over 150 feet not applicable or set up discharge destination home with home health no falls were recorded Time Spent with Patient Time attestation: Total time spent providing and/or coordinating discharge services: Exam Const: General: comfortable and no acute distress HENMT: General nose exam: Normal nares present Mouth: Yes moist mucous membranes Eyes: General: appearance normal, both eyes and all related structures Neck: Neck: supple and no JVD Resp: Effo
== END 2019-10-29 10:43 | disposition home health service (06) | DRG 950 ==
PROVIDERS: Admitting Provider Psychiatry & Neurology Neurology; PCP Family Medicine; Visit Provider Psychiatry & Neurology Neurology
DX: Z48.812 Encounter for surgical aftercare following surgery on the circulatory system (principal); I73.9 Peripheral vascular disease, unspecified; I99.8 Other disorder of circulatory system; I48.91 Unspecified atrial fibrillation; I10 Essential (primary) hypertension; I71.4 Abdominal aortic aneurysm, without rupture; I25.10 Atherosclerotic heart disease of native coronary artery without angina pectoris; E78.5 Hyperlipidemia, unspecified; K21.9 Gastro-esophageal reflux disease without esophagitis; L97.519 Non-pressure chronic ulcer of other part of right foot with unspecified severity; L89.152 Pressure ulcer of sacral region, stage 2; M10.071 Idiopathic gout, right ankle and foot; Z95.0 Presence of cardiac pacemaker; Z95.4 Presence of other heart-valve replacement; Z86.19 Personal history of other infectious and parasitic diseases; Z87.891 Personal history of nicotine dependence; B19.20 Unspecified viral hepatitis C without hepatic coma; Z95.828 Presence of other vascular implants and grafts
CPT/HCPCS: 36415; 80048; 85025; 85055; 85610; 87081; 97110; 97116; 97161; 97166; 97530; 97535; 97542; A9270

== ENCOUNTER 2021-04-27 13:02 | Emergency (ER) | payer OTHER, SELFPAY ==
[2021-04-27] VITALS (21 sets, daily range): BP systolic 128–205; BP diastolic 79–126; PULSE 60–72; RESP 10–23; TEMP 36.5; O2SAT 89–100
--- NOTE | 2021-04-27 13:19 | ECG_ITS ---
Measurements Intervals [address] Flat Rate: 63 P: -90 NM: 235 QRS: 1 QRSD: 120 T: 82 QT: 447 QTc: 461 Interpretive Statements ELECTRONIC ATRIAL PACEMAKER INCOMPLETE LEFT BUNDLE BRANCH BLOCK CANNOT RULE OUT SEPTAL INFARCT, AGE INDETERMINATE BORDERLINE T WAVE ABNORMALITY- HIGH LATERAL LEADS BASELINE ARTIFACT- II, III, AVF, V2-V6 ABNORMAL ECG Electronically Signed On 04-27-2021 19:23:19 CDT by Kush Cash D.O.
--- NOTE | 2021-04-27 13:21 | ED.GENADULT ---
HPI - General Adult General Chief complaint: Recheck/Abnormal Lab/Rx Stated complaint: high inr Time Seen by Provider: 04/27/21 13:13 Source: patient Mode of arrival: ambulatory Limitations: no limitations History of Present Illness HPI narrative: Patient is a 60-year-old male complaining of elevated INR. Patient was told by his primary care physician to go to the nearest emergency room due to his INR being at 11. Patient denies any active bleeding. Patient denies any GI bleeding or bleeding. Patient has no complaints at this time. Patient denies any headache, dizziness, chest pain, shortness of breath, abdominal pain, nausea, vomiting, diarrhea, fever or chills. Related Data Allergies Allergy/AdvReac Type Severity Reaction Status Date / Time iohexol Allergy Severe Anaphylactic Verified 04/27/21 13:39 [From contrast - CT, X-RAY] Shock Review of Systems Review of Systems: All systems reviewed & are unremarkable except as noted in HPI and below Constitutional: Constitutional: Denies body ache(s), Denies chills, Denies excessive sweating, Denies fatigue, Denies fever(s), Denies headache(s), Denies lethargy, Denies malaise, Denies weakness and Denies weight loss Eyes: Eyes: Denies blurry vision, Denies change in vision and Denies loss of vision ENT: Denies dizziness, Denies ear discharge, Denies headache(s), Denies lip swelling, Denies epistaxis, Denies nasal congestion, Denies neck pain, Denies throat swelling and Denies tongue swelling Cardiovascular: Cardiovascular: Denies chest pain, Denies chest pain at rest, Denies chest pain with activity, Denies diaphoresis, Denies rapid heart rate, Denies edema, Denies irregular heart rhythm, Denies lightheadedness, Denies palpitations, Denies dyspnea and Denies dyspnea on exertion Respiratory: Respiratory: Denies chest congestion, Denies cough, Denies hemoptysis, Denies dyspnea and Denies dyspnea on exertion Gastrointestinal: Gastrointestinal: Denies abdominal pain, Denies melena, Denies hematochezia, Denies diarrhea, Denies nausea, Denies vomiting and Denies hematemesis Musculoskeletal: Musculoskeletal: Denies abnormal gait, Denies deformity, Denies joint swelling, Denies limited range of motion, Denies neck pain and Denies numbness Neurologic: Denies Abnormal speech present, Denies abnormal gait, Denies confusion, Denies dizziness, Denies headache(s), Denies focal weakness, Denies loss of vision, Denies numbness, Denies Other visual disturbances, Denies Sensory deficit (Neuro) and Denies weakness Psychiatric: Psychiatric: Denies confusion, Denies depression, Denies auditory hallucinations, Denies homicidal ideation and Denies suicidal ideation Endocrine: Endocrine: Denies cold intolerance, Denies excessive sweating, Denies fatigue, Denies heat intolerance and Denies palpitations Hematologic/Lymphatic: Hematologic/Lymphatic: Denies easy bleeding and Denies easy bruising Allergic/Immunologic: Allergic/Immunologic: Denies lip swelling, Denies throat swelling and Denies tongue swelling PMFSH Past Medical History Medical History A-fib AAA (abdominal aortic aneurysm) without rupture Atrial fibrillation Back pain CAD (coronary artery disease) CHF (congestive heart failure) Hepatitis C HLD (hyperlipidemia) HTN (hypertension) Hx of cardiac pacemaker Pacemaker Peripheral vascular disease Surgical History Surgical History Hx of aortic valve replacement Hx of CABG Hx of mitral valve replacement Family History Family History Mother Acute myocardial infarction, Onset Age: 33 Sibling Cerebrovascular accident Social History Social History Smoking packs per day: 1 Smoking cigarettes per day: 20.0 Years smoked: 40 Smoking pack-years: 40.00 Smok
[2021-04-27] MEDS: LABETALOL HCL INJ 100 MG/20 ML VIAL 20 MG IV PUSH (13:36)
[2021-04-27 14:01] LABS: Basophils Percent Auto 0.4 % (0.2-1.2); Eosinophils Absolute Auto 0.4 K/mm3 (0-0.3); Eosinophils Percent Auto 5.7 % (0-4.4); Hematocrit 31.6 % (42.0-52.0); Hemoglobin 9.5 g/dL (14.0-18.0); Immature Granulocyte Absolute 0.01 K/mm3 (0.00-0.031); Immature Granulocyte Percent A 0.1 % (0-0.5); Lymphocytes Absolute Auto 2.14 K/mm3 (0.9-3.2); Lymphocytes Percent Auto 30.5 % (18.3-44.2); Mean Corpuscular HGB Conc 30.1 g/dl (32-36); Mean Corpuscular Hemoglobin 22.9 pg (26-34); Mean Corpuscular Volume 76.1 fl (80-100); Mean Platelet Volume 10.4 fl (7.4-10.4); Monocytes Absolute Auto 0.7 K/mm3 (0.1-0.6); Monocytes Percent Auto 10.4 % (2.6-8.5); Neutrophils Absolute Auto 3.7 K/mm3 (1.3-6.7); Neutrophils Percent Auto 52.9 % (45.5-73.1); Platelet Count Result 230 k/mm3 (150-375); Red Blood Count 4.15 M/mm3 (4.6-6.20); Red Cell Distribution Width 20.2 % (11.5-14.5)
[2021-04-27 14:12] LABS: Prothrombin Time 70.8 Seconds (11.1-14.7)
[2021-04-27 14:14] LABS: Partial Thromboplastin Time 126.6 SECONDS (22.3-36.8)
[2021-04-27 14:15] LABS: Alanine Aminotransferase 19 U/L (4-50); Albumin Level 4.3 g/dL (3.5-5.1); Alkaline Phosphatase 89 U/L (38-126); Anion Gap 10 mmol/L (8-16); Aspartate Amino Transferase 33 U/L (17-59); Bilirubin,Total 0.5 mg/dL (0.2-1.3); Blood Urea Nitrogen 17 mg/dL (9-20); Calcium 8.8 mg/dL (8.4-10.2); Carbon Dioxide 25 mmol/L (22-30); Chloride 106 mmol/L (98-107); Estimated CRCL calculation 73 ml/min; Estimated Glomerular Filt Rate > 60; Glucose 81 mg/dL (65-110); Potassium 4.4 mmol/L (3.4-5.0); Sodium 141 mmol/L (137-145)
[2021-04-27 14:24] LABS: INR 9.1
[2021-04-27] MEDS: PHYTONADIONE 2.5 MG TAB PO (15:17)
== END 2021-04-27 16:25 | disposition home or self-care (01) ==
PROVIDERS: Emergency Provider Emergency Medicine; PCP Family Medicine
DX: I16.0 Hypertensive urgency (principal); T45.511A Poisoning by anticoagulants, accidental (unintentional), initial encounter; I48.91 Unspecified atrial fibrillation; I25.10 Atherosclerotic heart disease of native coronary artery without angina pectoris; I50.9 Heart failure, unspecified; I11.0 Hypertensive heart disease with heart failure; E78.5 Hyperlipidemia, unspecified; I73.9 Peripheral vascular disease, unspecified; Z95.0 Presence of cardiac pacemaker; Z95.1 Presence of aortocoronary bypass graft; Z95.2 Presence of prosthetic heart valve; Z87.891 Personal history of nicotine dependence
CPT/HCPCS: 36415; 80053; 85025; 85610; 85730; 93005; 96374; 99284; A9270

== ENCOUNTER → 2021-07-07 10:06 | Outpatient (NON) | payer OTHER, SELFPAY ==
[2020-04-18 16:54] LABS: SARS-CoV-2 RNA PCR Negative
== END | disposition home or self-care (01) ==
PROVIDERS: PCP Family Medicine; Visit Provider Family Medicine
DX: B34.9 Viral infection, unspecified (principal); Z20.828 Contact with and (suspected) exposure to other viral communicable diseases
CPT/HCPCS: 87635; C9803; U0003

== ENCOUNTER 2023-11-15 08:45 | Outpatient (CLI) | payer OTHER, SELFPAY ==
--- NOTE | ~2023-11-15 | XR_ITS ---
EXAMINATION: XR finger 1st LT min 2V DATE: 11/15/2023 09:09 INDICATION: Left thumb pain TECHNIQUE: Dorsal palmar, lateral and 2 oblique views of the left first digit were obtained COMPARISON: None FINDINGS: Bone alignment is normal. No fracture. Polyarticular osteoarthritis, moderate severity at the distal radioulnar, first carpometacarpal and first metacarpophalangeal joints and mild at the radiocarpal, t he second and third metacarpophalangeal and several of the visualized interphalangeal joints includin g the first interphalangeal joint. There are prominent cystlike changes at the distal ulna. IMPRESSION: 1. 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 Reviewed, dictated and finalized at location A. IMPRESSION: 1. 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
== END 2023-11-15 08:46 | disposition home or self-care (01) ==
PROVIDERS: PCP Physician Assistant; Visit Provider Physician Assistant
DX: M19.042 Primary osteoarthritis, left hand (principal)
CPT/HCPCS: 73140